=== PATIENT | female | born 1985 | race Two or more races ===

== ENCOUNTER → 2018-04-29 09:27 | Outpatient (CLI) | payer BC, SELFPAY ==
[2018-04-29 12:56] LABS: Absolute Lymphocyte Count 1.24 X10^3/ul (0.83-4.51); Absolute Neutrophil Count 5.7 X10^3/uL (2.0-7.7); Basophil# 0.02 X10^3/uL; Basophil% 0.3 % (0-1); Eosinophil# 0.12 X10^3/uL; Eosinophils% 1.6 % (0-5); Hematocrit 43.6 % (37-47); Hemoglobin 14.9 g/dl (12.0-15.0); Lymphocyte # 1.24 X10^3/ul (4.0); Mean Corp Hgb Conc 34.2 g/gl (32-36); Mean Corpuscular Hgb 28.8 pg (27.0-32.0); Mean Corpuscular Volume 84.2 fL (81-99); Mean Platelet Vol. 10.2 fl (6.2-12.0); Monocyte# 0.63 X10^3/uL; Monocyte% 8.1 % (0-10); Neutrophil # 5.73 X10^3/uL (2.7-7.7); Platelet Count 271 K/mm3 (150-450); RBC Distribution Width CV 13.1 % (11.6-14.6); RBC Distribution Width SD 40.4 fl (35.1-43.9); Red Blood Count 5.18 M/mm3 (4.2-5.4); White Blood Count 7.7 K/mm3 (4.4-11.0)
[2018-04-29 13:03] LABS: POSITIVE COUNT NO; POSITIVE DIFFERENTIAL NO; POSITIVE MORPHOLOGY NO
[2018-04-29 13:57] LABS: HIV - WCH Non-Reactive (Nonreactive); Rubella IgG 137.1 IU/mL
[2018-04-30 16:16] LABS: HEPATITIS B SURFACE AG Negative (Negative); Hep C Antibodies 0.1 s/co ratio (0.0-0.9)
[2018-05-01 01:34] LABS: Rapid Plasmin Reagin (RPR) NONREACTIVE (NONREACTIVE)
== END ==
PROVIDERS: Family Provider Student in an Organized Health Care Education/Training Program; PCP Student in an Organized Health Care Education/Training Program; Visit Provider Obstetrics & Gynecology
DX: Z34.90 Encounter for supervision of normal pregnancy, unspecified, unspecified trimester (principal)
CPT/HCPCS: 36415; 85025; 86592; 86703; 86762; 86803; 86850; 86900; 87340

== ENCOUNTER → 2018-04-29 18:43 | Outpatient (CLI) | payer BC, SELFPAY ==
[2018-04-30 00:40] LABS: Chlamydia Trachomatis by PCR Negative (Negative); Neisserai gonorrhoeae by PCR Negative (Negative); Probe Check PASS; Sample Adequacy Control PASS; Specimen Processing Control PASS
[2018-05-04 15:23] LABS: HPV APTIMA, High Risk Negative (Negative)
== END ==
PROVIDERS: Visit Provider Obstetrics & Gynecology
DX: Z12.4 Encounter for screening for malignant neoplasm of cervix (principal); Z34.90 Encounter for supervision of normal pregnancy, unspecified, unspecified trimester
CPT/HCPCS: 87086; 87491; 87591; 88175; G0145

== ENCOUNTER → 2018-09-04 09:47 | Outpatient (CLI) | payer BC, SELFPAY ==
[2018-09-04 09:04] VITALS: BMI 22.3
[2018-09-04 10:29] LABS: Absolute Lymphocyte Count 1.46 X10^3/ul (0.83-4.51); Absolute Neutrophil Count 10.2 X10^3/uL (2.0-7.7); Basophil# 0.03 X10^3/uL; Basophil% 0.2 % (0-1); Eosinophil# 0.23 X10^3/uL; Eosinophils% 1.8 % (0-5); Hematocrit 39.9 % (37-47); Hemoglobin 13.5 g/dl (12.0-15.0); Lymphocyte # 1.46 X10^3/ul (4.0); Lymphocyte % 11.2 % (19-41); Mean Corp Hgb Conc 33.8 g/gl (32-36); Mean Corpuscular Hgb 29.9 pg (27.0-32.0); Mean Corpuscular Volume 88.5 fL (81-99); Mean Platelet Vol. 9.9 fl (6.2-12.0); Monocyte# 1.04 X10^3/uL; Neutrophil % 77.9 % (47-70); Platelet Count 236 K/mm3 (150-450); RBC Distribution Width CV 13.9 % (11.6-14.6); RBC Distribution Width SD 44.3 fl (35.1-43.9); Red Blood Count 4.51 M/mm3 (4.2-5.4); White Blood Count 13.1 K/mm3 (4.4-11.0)
[2018-09-04 10:35] LABS: POSITIVE COUNT NO; POSITIVE DIFFERENTIAL NO; POSITIVE MORPHOLOGY NO
[2018-09-04 10:37] LABS: Glucose Challenge Gest 1H 50g 70 mg/dL (70-140)
--- OUTSIDE RECORDS SUMMARY | 2018-10-20 23:57 | XMS RPT_ITS ---
:1985 Author Organization OHIP Support Name Relationship Address Phone [facility] Unavailable [address] + [place] [address] MARTHA RYAN Unavailable [address] + [place] [id number] [place] [address] + [place] [address] MARTHA RYAN Unavailable [address] + [place] [address] [facility] Unavailable [address] + [place] [address] MARTHA RYAN Unavailable [address] + [place] [id number] [place] [address] + [place] [address] RYAN THOMAS Unavailable [address] + [place] [address] [facility] Unavailable [address] + [place] [address] RYAN THOMAS Unavailable [address] + [place] [address] MARTHAPHILL DUARTEA Unavailable [address] + [place], [place] [id number] [place] [address] + [place] [address] MARTHA RYAN Unavailable [address] + [place] [id number] [place] [address] + [place] [address] RYAN THOMAS Unavailable [address] + [place] [id number] [place] [address] + [place] [address] MARTHA, RYAN Unavailable [address] + [place] [address] [facility] Unavailable [address] + [place] [address] MARTHA, RYAN Unavailable [address] + [place] [address] [facility] Unavailable Unavailable + [place] [address] MARTHA, RYAN Unavailable [address] + [place] [address] Care Team Providers Name Role Phone DAVID LUO Attending Unavailable DAVID LUO Referring Unavailable ANGELO MIRANDA Attending Unavailable SIMONA WILKERSON Referring Unavailable NO PRIMARY CAREMD Primary Care Unavailable Nicholas Braun Attending Unavailable Beltre, Orlin Referring Unavailable Evan, Molly Attending Unavailable ClareNicholas Referring Unavailable Beltre, Orlin Primary Care Unavailable MarcanthonySimona Attending Unavailable Beltre, Orlin Referring Unavailable Beltre, Orlin Primary Care Unavailable Marcanthony, Simona Attending Unavailable Beltre, Orlin Primary Care Unavailable Marcanthony, Simona Attending Unavailable Beltre, Orlin Referring Unavailable Marcanthony, Simona Attending Unavailable Beltre, Orlin Referring Unavailable Marcanthony, Simona Attending Unavailable Beltre, Orlin Primary Care Unavailable Marcanthony, Simona Referring Unavailable Marcanthony, Simona Attending Unavailable Beltre, Orlin Referring Unavailable Marcanthony, Simona Attending Unavailable Beltre, Orlin Referring Unavailable Clare, Nicholas Attending Unavailable Beltre, Orlin Referring Unavailable PROBLEMS PROBLEMS DATE TYPE CONDITION / CODE ATTENDING STATUS SOURCE 10/07/2018 Unknown Z3A.32 - 32 weeks Marcanthcatherine, Active [place] gestation of [facility] Z3A.32(ICD-10) Repository 10/07/2018 Unknown Z34.80 - Encounter René, Active [place] for supervision of [facility] other normal Hospital , Repository unspecified trimester / Z34.80(ICD-10) 09/04/2018 Unknown Z34.90 - Encounter Nihcolas Braun Active [place] for supervision of [facility] normal , Hospital unspecified, Repository unspecified trimester / Z34.90(ICD-10) 09/04/2018 Unknown Z23 - Encounter Nicholas Braun Active [place] for immunization / Community Z23(ICD-10) Hospital Repository 07/06/2018 Unknown Z3A.19 - 19 weeks Natalyacatherine, Active [place] gestation of [facility] Z3A.19(ICD-10) Repository 04/30/2018 Unknown Z12.4 - Encounter René, Active [place] for screening for [facility] malignant neoplasm Hospital of cervix / Repository Z12.4(ICD-10) PROCEDURES PROCEDURES No Procedure Records FoundRESULTS RESULTS RABBET OPERATOR OFFICE VISIT Observed: 10/07/2018 Status: F Source: [place] REPORT 10:48 AM [facility] [address] [place] [address]. [address] [place] [address] OFFICE VISIT Date of Service: 10/07/18 MR#: [id number] Acct: [id number] Name: ALEX THOMAS Rep #: [id number] : 1985 Provider: Simona Wilkerson MD Age/Sex: 33/F [facility] [facility] Status: Signed Intake Vital Signs10/07/18 Body Mass Index (BMI) 22.3 Intake Visit Reasons: 31 week ob Chief Complaint: est ob Vibration Technician Required: No Is patient in pain?: No Allergies No Known Allergies Allergy (Verified 10/07/18 10:28) Medications Vit No.130/Iron/Folic [ Tablet] 1 tab PO BID 03/28/16 [History Confirmed 10/07/18] Last Menstral Period: 02/21/18 Zika: Zika virus screening: Negative : No PFSH PFSH Medical History Abnormal Pap smear of cervix (Acute) Surgical History Status post colposcopy (Resolved) Family History Mother Breast cancer Grandmother Breast cancer Social History Smoking Status: Never smoker alcohol intake: never substance use type: does not use caffeine: No what type of physical activity do you participate in: none seatbelt use: always do you feel safe at home: Yes 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 DateName GA/Weeks Outcome Route Bth WeighInfant GeLabor LgtAnesthesiDel LocatProvider FOB t n h a n Delivery Date: 03/28/16 On 04/29/18 @ 08:36 Anat Campbell No issues during . Baby and patient had to receive antibiotic afterwards. Baby had fever. Patient had issues with uterus to contract HPI 31 week ob: Details: ALEX THOMAS is a 33 year old who presents for routine OB visit. OB Visit IDRIS Calculator Estimated Delivery Date 11/29/18 Based on Ultrasound Date 04/29/18 Current WG 32w 3d Number 1 Expected Delivery Route/Plan Specific Issue/Plans flu vaccine: given tdap vaccine: given rhogam: NA LARC form signed: declines labor support person: Ryan pain management: epidural cut cord/dad catch: yes : yes PP control planned: condoms special requests: [] Initial Weight: 137 lb Date Weight BP Urine PrFHR FuHt Pres MoCTX DilationFetal StVisit NoProviderComments E ot v te [place] G Effac lucose ed Visit Notes Visit Date: 10/07/18 no vb lof good fm n oregular ctx Simona Wilkerson MD on 10/07/18 Visit Date: 09/21/18 no vb lof good fm no regular ctx Simona Wilkerson MD on 09/21/18 Visit Date: 09/04/18 Doing well. No VB, LOF. ALEXIS Baeza on 09/04/18 Visit Date: 08/07/18 No VB, LOF. Had some tightening 1 week ago and resolved. ALEXIS Baeza on 08/07/18 Visit Date: 07/06/18 had small bleeding a few weeks ago and resolved spontaneously, no cramping Simona Wilkerosn MD on 07/06/18 Visit Date: 06/01/18 no vb cramping declines genetic testing, considering NTD screening Simona Wilkerson MD on 06/01/18 Visit Date: 08/08/18 No visit notes to display ACOG First Trimester First Trimester: Desire for , Alcohol, Tobacco Cessation, Illicit/Recreational Drug/Substance Use, Intimate Partner Violence, Barriers to care, Unstable Housing, Communication Barriers, Environmental/Work Hazards, Anticipated Course of Care, Toxoplasmosis Precations, Use of Any medications, Sexual activity, Exercise, Dental Care, Sauna/Hot tub use, Seat Belt use, Childbirth classes/Hospital facilities, , Travel, Indications for US and Screening for Aneuploidy Diagnostics Diagnostics Labs Blood Type A POSITIVE 04/29/18 Antibody Screen NEGATIVE 04/29/18 Hct 39.9 % (37-47) 09/04/18 Hgb 13.5 g/dl (12.0-15.0) 09/04/18 Pap Smear Negative 03/27/15 Rubella IgG Antibody 137.1 IU/mL 04/29/18 RPR NONREACTIVE (NONREACTIVE) 04/29/18 Hep Bs Antigen Negative (Negative) 04/29/18 Chlam trachomat DNA PCR Negative (Negative) 04/29/18 N.gonorrhoeae DNA (PCR) Negative (Negative) 04/29/18 Glucose 1 Hr 50 gm 70 mg/dL (70-140) 09/04/18 Details: HIV: Urine Culture: Sequential Screen: NIPT Screen: Results [id number] Office Urine Glucose Negative Last Edit by Cira Frausto on 10/07/18 10:33 Office Urine Protein Negative Last Edit by Cira Frausto on 10/07/18 10:33 Assessment AND Plan Problems 1. 32 weeks gestation of Z3A.32 declines genetic and carrier screening, considering AFP. Anatomy us normal 2. Normal in multigravida Z34.80 PRR IDRIS 11/29/18 PC Bree Ryan Plan movement and labor precautions reviewed. ACOG trimester education reviewed and updated. see problem list details for updated plan management information and see below for orders placed at this visit. [place] appropriate handout given. Orders Orders: Coding Level of Care Code OB Routine Diagnoses 32 weeks gestation of Z3A.32 Weeks of gestation: 32 weeks Normal in multigravida Z34.80 10/07/18 1048 <Electronically signed by Simona Wilkerson MD> Date [facility] Signature: Date (if applicable) CC: RABBET OPERATOR OFFICE VISIT Observed: 09/21/2018 Status: F Source: [place] REPORT 1:24 PM [facility] [address] [place] [address] OFFICE VISIT Date of Service: 09/21/18 MR#: [id number] Acct: [id number] Name: ALEX THOMAS Rep #: [id number] : 1985 Provider: Simona Wilkerson MD Age/Sex: 33/F [place] [facility] Status: Signed Intake Vital Signs09/21/18 Body Mass Index (BMI) 22.3 09/21/18 Height 5 ft 9 in 09/21/18 Weight: 159 lb 6 oz 09/21/18 Body Mass Index (BMI) 23.5 09/21/18 Blood Pressure 110/64 Intake Visit Reasons: ob Vibration Technician Required: No Is patient in pain?: No Allergies No Known Allergies Allergy (Verified 09/21/18 12:14) Medications Vit No.130/Iron/Folic [ Tablet] 1 tab PO BID 03/28/16 [History Confirmed 09/21/18] Last Menstral Period: 02/21/18 Zika: Zika virus screening: Negative : No PFSH PFSH Medical History Abnormal Pap smear of cervix (Acute) Surgical History Status post colposcopy (Resolved) Family History Mother Breast cancer Grandmother Breast cancer Social History Smoking Status: Never smoker alcohol intake: never substance use type: does not use caffeine: No what type of physical activity do you participate in: none seatbelt use: always do you feel safe at home: Yes 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 DateName GA/Weeks Outcome Route Bth WeighInfant GeLabor LgtAnesthesiDel LocatProvider FOB t n h a n Delivery Date: 03/28/16 On 04/29/18 @ 08:36 Anat Campbell No issues during . Baby and patient had to receive antibiotic afterwards. Baby had fever. Patient had issues with uterus to contract HPI ob: Details: ALEX THOMAS is a 33 year old who presents for routine OB visit. OB Visit IDRIS Calculator Estimated Delivery Date 11/29/18 Based on Ultrasound Date 04/29/18 Current WG 30w 1d Number 1 Expected Delivery Route/Plan Specific Issue/Plans flu vaccine: given tdap vaccine: given rhogam: NA LARC form signed: declines labor support person: Ryan pain management: epidural cut cord/dad catch: yes : yes PP control planned: condoms special requests: [] Initial Weight: 137 lb Date Weight BP Urine PrFHR FuHt Pres MoCTX DilationFetal StVisit NoProviderComments E ot v te [place] G Effac lucose ed Visit Notes Visit Date: 09/21/18 no vb lof good fm no regular ctx Simona Wilkerson MD on 09/21/18 Visit Date: 09/04/18 Doing well. No VB, LOF. ALEXIS Baeza on 09/04/18 Visit Date: 08/07/18 No VB, LOF. Had some tightening 1 week ago and resolved. ALEXIS Baeza on 08/07/18 Visit Date: 07/06/18 had small bleeding a few weeks ago and resolved spontaneously, no cramping Simona Wilkerson MD on 07/06/18 Visit Date: 06/01/18 no vb cramping declines genetic testing, considering NTD screening Simona Wilkerson MD on 06/01/18 Visit Date: 04/29/18 No visit notes to display ACOG First Trimester First Trimester: Desire for , Alcohol, Tobacco Cessation, Illicit/Recreational Drug/Substance Use, Intimate Partner Violence, Barriers to care, Unstable Housing, Communication Barriers, Environmental/Work Hazards, Anticipated Course of Care, Toxoplasmosis Precations, Use of Any medications, Sexual activity, Exercise, Dental Care, Sauna/Hot tub use, Seat Belt use, Childbirth classes/Hospital facilities, , Travel, Indications for US and Screening for Aneuploidy Diagnostics Diagnostics Labs Blood Type A POSITIVE 04/29/18 Antibody Screen NEGATIVE 04/29/18 Hct 39.9 % (37-47) 09/04/18 Hgb 13.5 g/dl (12.0-15.0) 09/04/18 Pap Smear Negative 03/27/15 Rubella IgG Antibody 137.1 IU/mL 04/29/18 RPR NONREACTIVE (NONREACTIVE) 04/29/18 Hep Bs Antigen Negative (Negative) 04/29/18 Chlam trachomat DNA PCR Negative (Negative) 04/29/18 N.gonorrhoeae DNA (PCR) Negative (Negative) 04/29/18 Glucose 1 Hr 50 gm 70 mg/dL (70-140) 09/04/18 Details: HIV: Urine Culture: Sequential Screen: NIPT Screen: Results [id number] Office Urine Glucose Negative Last Edit by Grisel Baker on 09/21/18 12:13 Office Urine Protein Negative Last Edit by Grisel Baker on 09/21/18 12:13 Assessment AND Plan Problems 1. 30 weeks gestation of Z3A.30 declines genetic and carrier screening, considering AFP. Anatomy us normal 2. Normal in multigravida Z34.80 PRR IDRIS 11/29/18 PC Bree Ryan Plan movement and labor precautions reviewed. ACOG trimester education reviewed and updated. see problem list details for updated plan management information and see below for orders placed at this visit. [place] appropriate handout given. Orders Orders: Coding Level of Care Code OB Routine Diagnoses 30 weeks gestation of Z3A.30 Weeks of gestation: 30 weeks Normal in multigravida Z34.80 09/21/18 1324 <Electronically signed by Simona Wilkerson MD> Date Simona Wilkerson MD Cosigner Signature: Date (if applicable) CC: CBC W/DIFF, AUTOMATED Collected: 09/04/2018 Status: F Source: [place] 10:03 AM [facility] [place] TYPE CODE TESTS RESULT OUT OF RANGE REFERENCE UNITS LAB L100.1000 4.4-11.0 K/mm3 High WBC 13.1 LAB L100.1200 4.2-5.4 M/mm3 Normal RBC 4.51 LAB L100.1300 12.0-15.0 g/dl Normal HGB 13.5 LAB L100.1400 37-47 % Normal HCT 39.9 LAB L100.1500 81-99 fL Normal MCV 88.5 LAB L100.1600 27.0-32.0 pg Normal MCH 29.9 LAB L100.1700 32-36 g/gl Normal MCHC 33.8 LAB L100.1810 11.6-14.6 % Normal RDW CV 13.9 LAB L100.1820 35.1-43.9 fl High RDW SD 44.3 LAB L100.1900 150-450 K/mm3 Normal PLT 236 LAB L100.2000 6.2-12.0 fl Normal MPV 9.9 LAB L100.2100 47-70 % High NEUT% 77.9 LAB L100.2200 19-41 % Low LY% 11.2 LAB L100.2300 0-10 % Normal MONO% 8.0 LAB L100.2400 0-5 % Normal EO% 1.8 LAB L100.2500 0-1 % Normal BASO% 0.2 LAB L100.2550 0.0-0.9 % Normal IM GRAN % 0.900 Result Comment: IG% - Immature Granulocytes (promyelocytes, myelocytes and metamyelocytes) > 1% indicates that a LEFT SHIFT is Present. LAB L100.2620 2.0-7.7 X10 3/uL High Absolute Neut 10.2 LAB L100.2720 0.83-4.51 X10 3/ul Normal Absolute Lymph 1.46 Performed By: #### L100.0100 #### [facility] [address] [place], [place], [id number] GLUCOSE CHALLENGE GEST Collected: 09/04/2018 Status: F Source: [place] 1H 50G 10:03 AM [facility] Order Comment: PER NICHOLAS BRAUN, DRAW PATIENT. PATIENT WAS TO BE DRAWN AT 0945 FOR GLUCOSE. TYPE CODE TESTS RESULT OUT OF RANGE REFERENCE UNITS LAB L501.0250 70-140 mg/dL Normal GLU GEST 70 50g 1H Performed By: #### L501.0250 #### [facility] [address] [place], [address] RABBET OPERATOR OFFICE VISIT Observed: 09/04/2018 Status: F Source: [place] REPORT 9:14 AM [facility] [address] [place] [address] OFFICE VISIT Date of Service: 09/04/18 MR#: [id number] Acct: [id number] Name: ALEX THOMAS Rep #: [id number] : 1985 Provider: ÁLVARO Braun Age/Sex: 33/F [place] [facility] Status: Signed Intake Vital Signs09/04/18 Body Mass Index (BMI) 22.3 09/04/18 Height 5 ft 5.8 in 09/04/18 Weight: 155 lb 09/04/18 Body Mass Index (BMI) 25.1 09/04/18 Blood Pressure 112/80 Intake Visit Reasons: 27 wk Chief Complaint: est ob Vibration Technician Required: No Is patient in pain?: No Allergies No Known Allergies Allergy (Verified 09/04/18 08:49) Medications Vit No.130/Iron/Folic [ Tablet] 1 tab PO BID 03/28/16 [History Confirmed 08/07/18] Last Menstral Period: 02/21/18 Zika: Zika virus screening: Negative : No PFSH PFSH Medical History Abnormal Pap smear of cervix (Acute) Surgical History Status post colposcopy (Resolved) Family History Mother Breast cancer Grandmother Breast cancer Social History Smoking Status: Never smoker alcohol intake: never substance use type: does not use caffeine: No what type of physical activity do you participate in: none seatbelt use: always do you feel safe at home: Yes 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 DateName GA/Weeks Outcome Route Bth WeighInfant GeLabor LgtAnesthesiDel LocatProvider FOB t n h a n Delivery Date: 03/28/16 On 04/29/18 @ 08:36 Anat Campbell No issues during . Baby and patient had to receive antibiotic afterwards. Baby had fever. Patient had issues with uterus to contract HPI 27 wk : Details: LAEX THOMAS is a 33 year old who presents for routine OB visit. OB Visit IDRIS Calculator Estimated Delivery Date 11/29/18 Based on Ultrasound Date 04/29/18 Current WG 27w 5d Number 1 Expected Delivery Route/Plan Specific Issue/Plans flu vaccine: given tdap vaccine: given rhogam: NA LARC form signed: declines labor support person: Ryan pain management: epidural cut cord/dad catch: yes : yes PP control planned: condoms special requests: [] Initial Weight: 137 lb Date Weight BP Urine PrFHR FuHt Pres MoCTX DilationFetal StVisit NoProviderComments E ot v te [place] G Effac lucose ed Visit Notes Visit Date: 09/04/18 Doing well. No VB, LOF. ALEXIS Baeza on 09/04/18 Visit Date: 08/07/18 No VB, LOF. Had some tightening 1 week ago and resolved. ALEXIS Baeza on 08/07/18 Visit Date: 07/06/18 had small bleeding a few weeks ago and resolved spontaneously, no cramping Simona Wilkerson MD on 07/06/18 Visit Date: 06/01/18 no vb cramping declines genetic testing, considering NTD screening Simona Wilkerson MD on 06/01/18 Visit Date: 04/29/18 No visit notes to display ACOG First Trimester First Trimester: Desire for , Alcohol, Tobacco Cessation, Illicit/Recreational Drug/Substance Use, Intimate Partner Violence, Barriers to care, Unstable Housing, Communication Barriers, Environmental/Work Hazards, Anticipated Course of Care, Toxoplasmosis Precations, Use of Any medications, Sexual activity, Exercise, Dental Care, Sauna/Hot tub use, Seat Belt use, Childbirth classes/Hospital facilities, , Travel, Indications for US and Screening for Aneuploidy Diagnostics Diagnostics Labs Blood Type A POSITIVE 04/29/18 Antibody Screen NEGATIVE 04/29/18 Hct 43.6 % (37-47) 04/29/18 Hgb 14.9 g/dl (12.0-15.0) 04/29/18 Pap Smear Negative 03/27/15 Rubella IgG Antibody 137.1 IU/mL 04/29/18 RPR NONREACTIVE (NONREACTIVE) 04/29/18 Hep Bs Antigen Negative (Negative) 04/29/18 Chlam trachomat DNA PCR Negative (Negative) 04/29/18 N.gonorrhoeae DNA (PCR) Negative (Negative) 04/29/18 Details: HIV: Urine Culture: Sequential Screen: NIPT Screen: Results [id number] Office Urine Glucose Negative Last Edit by Cira Frausto on 09/04/18 08:51 Office Urine Protein Negative Last Edit by Cira Frausto on 09/04/18 08:51 Immunizations Boostrix Tdap Performing Provider: ALEXIS Baeza Administered by: Cira Frausto on 09/04/18 08:52 Dose Route Admin Location Lot Number Expiration Date [facility] Advertising Executive 0.5 mL IM Right Arm (SQ) [id number] 07/11/25 66570-627-42 [employer] VIS Given Date VIS Publication Date 09/04/18 11/15/14 Eligibility Eligibility Date Assessment AND Plan Problems 1. Normal in multigravida Z34.80 PRR IDRIS 11/29/18 PC Bree Ryan 2. 27 weeks gestation of Z3A.27 declines genetic and carrier screening, considering AFP. Anatomy us normal Plan Orders placed: 28 wk labs, tdap Reviewed of labor precautions, movement/kick counts ACOG trimester education reviewed and updated See problem list details for updated plan of care Gestational age appropriate handout given RTO: 3 weeks Orders Orders: Medications Discontinued: Boostrix Tdap (diphth,pertus(acell),tetanus) Discontinue0.5 mL IM ONCE 1 mL 0RF NS Z23 d Reason: Office Medication has been Documented as given Coding Level of Care Code OB Routine Diagnoses Normal in multigravida Z34.80 27 weeks gestation of Z3A.27 Weeks of gestation: 27 weeks 09/04/18 0914 <Electronically signed by Nicholas ESPINOZA> Date Nicholas ESPINOZA Cosigner Signature: Date (if applicable) CC: RABBET OPERATOR OFFICE VISIT Observed: 08/07/2018 Status: F Source: [place] REPORT 8:34 AM [facility] [address] [place] [address] OFFICE VISIT Date of Service: 08/07/18 MR#: [id number] Acct: [id number] Name: ALEX THOMAS Rep #: [id number] : 1985 Provider: ÁLVARO Braun Age/Sex: 33/F [place] [facility] Status: Signed Intake Vital Signs08/07/18 Height 5 ft 8.5 in 08/07/18 Weight: 149 lb 08/07/18 Body Mass Index (BMI) 22.3 08/07/18 Blood Pressure 100/62 Intake Visit Reasons: 22 weeksh Chief Complaint: est ob Vibration Technician Required: No Is patient in pain?: No Allergies No Known Allergies Allergy (Verified 08/07/18 08:08) Medications Vit No.130/Iron/FA [ Tablet] 1 tab PO BID 03/28/16 [History Confirmed 08/07/18] Last Menstral Period: 02/21/18 Zika: Zika virus screening: Negative : No PFSH PFSH Medical History Abnormal Pap smear of cervix (Acute) Surgical History Status post colposcopy (Resolved) Family History Mother Breast cancer Grandmother Breast cancer Social History Smoking Status: Never smoker alcohol intake: never substance use type: does not use caffeine: No what type of physical activity do you participate in: none seatbelt use: always do you feel safe at home: Yes 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 DateName GA/Weeks Outcome Route Bth WeighInfant GeLabor LgtAnesthesiDel LocatProvider FOB t n h a n Delivery Date: 03/28/16 On 04/29/18 @ 08:36 Anat Campbell No issues during . Baby and patient had to receive antibiotic afterwards. Baby had fever. Patient had issues with uterus to contract HPI 22 weeksh: Details: ALEX THOMAS is a 33 year old who presents for routine OB visit. OB Visit IDRIS Calculator Estimated Delivery Date 11/29/18 Based on Ultrasound Date 04/29/18 Current WG 23w 5d Number 1 Expected Delivery Route/Plan Specific Issue/Plans flu vaccine: given tdap vaccine: [] rhogam: [] LARC form signed: [] labor support person: Ryan pain management: epidural cut cord/dad catch: yes : yes PP control planned: [] special requests: [] Initial Weight: 137 lb Date Weight BP Urine PFHR FuHt Pres MCTX DilatioFetal SVisit NProvideComment rot ov n t ote r s EGA Ef Gluco faced se 04/29/1137 lb 133/80 8 (+0 oz) 9w 3d Visit Notes Visit Date: 08/07/18 No VB, LOF. Had some tightening 1 week ago and resolved. ALEXIS Baeza on 08/07/18 Visit Date: 07/06/18 had small bleeding a few weeks ago and resolved spontaneously, no cramping Simona Wilkerson MD on 07/06/18 Visit Date: 06/01/18 no vb cramping declines genetic testing, considering NTD screening Simona Wilkerson MD on 06/01/18 Visit Date: 04/29/18 No visit notes to display ACOG First Trimester First Trimester: Desire for , Alcohol, Tobacco Cessation, Illicit/Recreational Drug/Substance Use, Intimate Partner Violence, Barriers to care, Unstable Housing, Communication Barriers, Environmental/Work Hazards, Anticipated Course of Care, Toxoplasmosis Precations, Use of Any medications, Sexual activity, Exercise, Dental Care, Sauna/Hot tub use, Seat Belt use, Childbirth classes/Hospital facilities, , Travel, Indications for US and Screening for Aneuploidy Diagnostics Diagnostics Labs Blood Type A POSITIVE 04/29/18 Antibody Screen NEGATIVE 04/29/18 Hct 43.6 % (37-47) 04/29/18 Hgb 14.9 g/dl (12.0-15.0) 04/29/18 Pap Smear Negative 03/27/15 Rubella IgG Antibody 137.1 IU/mL 04/29/18 RPR NONREACTIVE (NONREACTIVE) 04/29/18 Hep Bs Antigen Negative (Negative) 04/29/18 Chlam trachomat DNA PCR Negative (Negative) 04/29/18 N.gonorrhoeae DNA (PCR) Negative (Negative) 04/29/18 Details: HIV: Urine Culture: Sequential Screen: NIPT Screen: Results [id number] Office Urine Glucose Negative Last Edit by Cira Frausto on 08/07/18 08:13 Office Urine Protein Negative Last Edit by Cira Frausto on 08/07/18 08:13 Assessment AND Plan Problems 1. Normal in multigravida Z34.80 PRR IDRIS 11/29/18 PC Bree Ryan 2. 23 weeks gestation of Z3A.23 declines genetic and carrier screening, considering AFP. Anatomy us normal Plan Orders placed: none Reviewed of labor precautions, movement/kick counts ACOG trimester education reviewed and updated See problem list details for updated plan of care Gestational age appropriate handout given RTO: 4 weeks Orders Orders: Coding Level of Care Code OB Routine Diagnoses Normal in multigravida Z34.80 23 weeks gestation of Z3A.23 Weeks of gestation: 23 weeks 08/07/18 0834 <Electronically signed by Nicholas ESPINOZA> Date Nicholas Evan VEST FINISHER-C Cosigner Signature: Date (if applicable) CC: RABBET OPERATOR OFFICE VISIT Observed: 07/06/2018 Status: F Source: ЕЛЕНА REPORT 4:49 PM [facility] [address] [place] [address] OFFICE VISIT Date of Service: 07/06/18 MR#: [id number] Acct: [id number] Name: ALEX THOMAS Rep #: [id number] : 1985 Provider: Simona Wilkerson MD Age/Sex: 33/F [place] [facility]: Signed with Addenda ADDENDUM by Manju Jiang on 07/06/18 at 1649 OFFICE PROCEDURES Office Procedure Documentation entered by Manju Jiang 07/06/18 16:49: Office Meds Flucelvax Quad [id number] (PF) Performing Provider: Simona Wilkerson MD Administered by: Manju Jiang on 07/06/18 16:43 Dose Route Admin Location Lot Number Expiration Date NDC Advertising Executive 0.5 mL IM right deltoid [id number] 03/21/19 [id number] SEQIRUS 07/06/18 1649 <Electronically signed by Manju Jiang > Date Manju Jiang cc: * Signed Intake Vital Signs07/06/18 Height 5 ft 8 in 07/06/18 Weight: 140 lb 2 oz 07/06/18 Body Mass Index (BMI) 21.3 07/06/18 Blood Pressure 102/54 L Intake Visit Reasons: 18 WEEK OB Chief Complaint: est ob Vibration Technician Required: No Is patient in pain?: No Allergies No Known Allergies Allergy (Verified 07/06/18 08:12) Medications Vit No.130/Iron/FA [ Tablet] 1 tab PO BID 03/28/16 [History Confirmed 07/06/18] Last Menstral Period: 02/21/18 Zika: Zika virus screening: Negative : No PFSH PFSH Medical History Abnormal Pap smear of cervix (Acute) Surgical History Status post colposcopy (Resolved) Family History Mother Breast cancer Grandmother Breast cancer Social History Smoking Status: Never smoker alcohol intake: never substance use type: does not use caffeine: No what type of physical activity do you participate in: none seatbelt use: always do you feel safe at home: Yes 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 DateName GA/Weeks Outcome Route Bth WeighInfant GeLabor LgtAnesthesiDel LocatProvider FOB t n h a n Delivery Date: 03/28/16 On 04/29/18 @ 08:36 ShannanAnat No issues during . Baby and patient had to receive antibiotic afterwards. Baby had fever. Patient had issues with uterus to contract HPI 18 WEEK OB: Details: ALEX THOMAS is a 33 year old who presents for routine OB visit. OB Visit IDRIS Calculator Estimated Delivery Date 11/29/18 Based on Ultrasound Date 04/29/18 Current WG 19w 1d Number 1 Expected Delivery Route/Plan Initial Weight: 137 lb Date Weight BP Urine PrFHR FuHt Pres MoCTX DilationFetal StVisit NoProviderComments E ot v te GA G Effac lucose ed Visit Notes Visit Date: 07/06/18 had small bleeding a few weeks ago and resolved spontaneously, no cramping Simona Wilkerson MD on 07/06/18 Visit Date: 06/01/18 no vb cramping declines genetic testing, considering NTD screening Simona Wilkerson MD on 06/01/18 Visit Date: 04/29/18 No visit notes to display ACOG First Trimester First Trimester: Desire for , Alcohol, Tobacco Cessation, Illicit/Recreational Drug/Substance Use, Intimate Partner Violence, Barriers to care, Unstable Housing, Communication Barriers, Environmental/Work Hazards, Anticipated Course of Care, Toxoplasmosis Precations, Use of Any medications, Sexual activity, Exercise, Dental Care, Sauna/Hot tub use, Seat Belt use, Childbirth classes/Hospital facilities, , Travel, Indications for US and Screening for Aneuploidy Diagnostics Diagnostics Labs Blood Type A POSITIVE 04/29/18 Antibody Screen NEGATIVE 04/29/18 Hct 43.6 % (37-47) 04/29/18 Hgb 14.9 g/dl (12.0-15.0) 04/29/18 Pap Smear Negative 03/27/15 Rubella IgG Antibody 137.1 IU/mL 04/29/18 RPR NONREACTIVE (NONREACTIVE) 04/29/18 Hep Bs Antigen Negative (Negative) 04/29/18 Chlam trachomat DNA PCR Negative (Negative) 04/29/18 N.gonorrhoeae DNA (PCR) Negative (Negative) 04/29/18 Details: HIV: Urine Culture: Sequential Screen: NIPT Screen: Results [id number] Office Urine Glucose Negative Last Edit by Cira Frausto on 07/06/18 08:15 Office Urine Protein Negative Last Edit by Cira Frausto on 07/06/18 08:15 Assessment AND Plan Problems 1. 19 weeks gestation of Z3A.19 declines genetic and carrier screening, considering AFP. anatomy us ordered 2. Normal in multigravida Z34.80 PRR IDRIS 11/29/18 PC Bree Ryan Plan ACOG trimester education reviewed and updated. see problem list details for updated plan management information and see below for orders placed at this visit. GA appropriate handout given. hodling off on afp for now until after ultrasound Orders Orders: Coding Level of Care Code OB Routine Diagnoses 19 weeks gestation of Z3A.19 Weeks of gestation: 19 weeks Normal in multigravida Z34.80 07/06/18 0831 <Electronically signed by Simona Wilkerson MD> Date Simona Wilkerson MD Cosign Signature: Date (if applicable) CC: RABBET OPERATOR OFFICE VISIT Observed: 06/01/2018 Status: F Source: ЕЛЕНА REPORT 8:39 AM [facility] [address] [place] [address] OFFICE VISIT Date of Service: 06/01/18 MR#: [id number] Acct: [id number] Name: ALEX THOMAS Rep #: [id number] : 1985 Provider: Simona Wilkerson MD Age/Sex: 33/F [place] [facility] Status: Signed Intake Vital Signs06/01/18 Height 5 ft 8 in 06/01/18 Weight: 138 lb 8 oz 06/01/18 Body Mass Index (BMI) 21.0 06/01/18 Blood Pressure 118/70 Intake Visit Reasons: 13 WEEK OB Chief Complaint: est ob Vibration Technician Required: No Is patient in pain?: No Allergies No Known Allergies Allergy (Verified 06/01/18 08:17) Medications Vit No.130/Iron/FA [ Tablet] 1 tab PO BID 03/28/16 [History Confirmed 04/29/18] Last Menstral Period: 02/21/18 Zika: Zika virus screening: Negative : No PFSH PFSH Medical History Abnormal Pap smear of cervix (Acute) Surgical History Status post colposcopy (Resolved) Family History Mother Breast cancer Grandmother Breast cancer Social History Smoking Status: Never smoker alcohol intake: never substance use type: does not use caffeine: No what type of physical activity do you participate in: none seatbelt use: always do you feel safe at home: Yes 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 DateName GA/Weeks Outcome Route Bth WeighInfant GeLabor LgtAnesthesiDel LocatProvider FOB t n h a n Delivery Date: 03/28/16 On 04/29/18 @ 08:36 Anat Campbell No issues during . Baby and patient had to receive antibiotic afterwards. Baby had fever. Patient had issues with uterus to contract HPI 13 WEEK OB: Details: ALEX THOMAS is a 33 year old who presents for routine OB visit. OB Visit IDRIS Calculator Estimated Delivery Date 11/29/18 Based on Ultrasound Date 04/29/18 Current WG 14w 1d Number 1 Expected Delivery Route/Plan Initial Weight: 137 lb Date Weight BP Urine PrFHR FuHt Pres MoCTX DilationFetal StVisit NoProviderComments E ot v te GA G Effac lucose ed Visit Notes Visit Date: 06/01/18 no vb cramping declines genetic testing, considering NTD screening Simona Wilkerson MD on 06/01/18 Visit Date: 04/29/18 No visit notes to display ACOG First Trimester First Trimester: Desire for , Alcohol, Tobacco Cessation, Illicit/Recreational Drug/Substance Use, Intimate Partner Violence, Barriers to care, Unstable Housing, Communication Barriers, Environmental/Work Hazards, Anticipated Course of Care, Toxoplasmosis Precations, Use of Any medications, Sexual activity, Exercise, Dental Care, Sauna/Hot tub use, Seat Belt use, Childbirth classes/Hospital facilities, , Travel, Indications for US and Screening for Aneuploidy Diagnostics Diagnostics Labs Blood Type A POSITIVE 04/29/18 Antibody Screen NEGATIVE 04/29/18 Hct 43.6 % (37-47) 04/29/18 Hgb 14.9 g/dl (12.0-15.0) 04/29/18 Pap Smear Negative 03/27/15 Rubella IgG Antibody 137.1 IU/mL 04/29/18 RPR NONREACTIVE (NONREACTIVE) 04/29/18 Hep Bs Antigen Negative (Negative) 04/29/18 Chlam trachomat DNA PCR Negative (Negative) 04/29/18 N.gonorrhoeae DNA (PCR) Negative (Negative) 04/29/18 Rhogam given: No 03/30/16 Details: HIV: Urine Culture: Sequential Screen: NIPT Screen: Results [id number] Office Urine Glucose Negative Last Edit by Cira Frausto on 06/01/18 08:18 Office Urine Protein Negative Last Edit by Cira Frausto on 06/01/18 08:18 Assessment AND Plan Problems 1. Normal in multigravida Z34.80 PRR IDRIS 11/29/18 PC Bree Ryan 2. Z34.90 declines genetic and carrier screening, considering AFP. anatomy us ordered Plan ACOG trimester education reviewed and updated. see problem list details for updated plan management information and see below for orders placed at this visit. GA appropriate handout given. Orders Orders: Coding Level of Care Code OB Routine Diagnoses Normal in multigravida Z34.80 Z34.90 06/01/18 0839 <Electronically signed by Simona Wilkerson MD> Date Simona Wilkerson MD Cosigner Signature: Date (if applicable) CC: CT/NG [facility] BY PCR Collected: 04/29/2018 Status: F Source: [place]А 6:44 PM [facility] CODE TESTS RESULT OUT OF RANGE REFERENCE UNITS LAB L8200.2100 Negative Normal Chlam Negative Trac PCR LAB L8200.2200 Negative Normal NG by Negative PCR Performed By: #### L8200.2000 #### [facility] [address] [place], [place], [address] Observed: 04/29/2018 Status: F Source: ЕЛЕНА CULTURE, URINE 6:44 PM [facility] [place] CYTOLOGY INFORMATION: - CLINICAL INFORMATION: - DATE LMP/MENOPAUSE: LMP unknown - COLLECTION VIAL: Thin Prep Vial - PICKERS MATERIAL HANDLERS SOURCE: CERVICAL - COLLECTION TECHNIQUE: CX BROOM ONLY Urine Culture Culture exhibits no growth. Performed By: #### M100.0650 #### [facility] [address] [place], [address] PAP IG HPV APTIMA Collected: 04/29/2018 Status: F Source: ЕЛЕНА 16/18,45 6:44 PM [facility] [place] Order Comment: Specimen Comment: No. of containers..01 ThinPrep Vial TYPE CODE TESTS RESULT OUT OF RANGE REFERENCE UNITS LAB L7400.0800 . Normal DIAGN Comment Result Comment: NEGATIVE FOR INTRAEPITHELIAL LESION AND MALIGNANCY. LAB L7400.0900 . Normal ADEQ Comment Result Comment: Satisfactory for evaluation. No endocervical component is identified. LAB L7400.1400 . Normal PERFORM Comment Result Comment: Mi Lua, Manager Electronic (ASCP) LAB L7400.2575 . Normal TEST METHOD Comment Result Comment: This liquid based ThinPrep(R) pap test was screened with the use of an image guided system. LAB L7400.2600 . Normal . COMM LAB L7400.2700 . Normal PAPSMR Comment Result Comment: The Pap smear is a screening test designed to aid in the detection of premalignant and malignant conditions of the uterine cervix. It is not a diagnostic procedure and should not be used as the sole means of detecting cervical cancer. Both false-positive and false-negative reports do occur. LAB L7400.2760 Negative Normal HPV APTIMA, Negative HR Result Comment: This test detects fourteen high-risk HPV types (16/18/31/33/35/39/45/ 51/52/56/58/59/66/68) without differentiation. Performed at: - [facility] [id number] Anatomy And Physiology Instructor: Sheryl Keen MD, Phone: [phone] Performed at: = - [facility] [id number] Anatomy And Physiology Instructor: Sheryl Keen MD, Phone: [phone] Performed By: #### L7400.0280 #### [facility] (refer to report for specific site) refer to report for address and phone number RABBET OPERATOR OFFICE VISIT Observed: 04/29/2018 Status: F Source: ЕЛЕНА REPORT 3:13 PM [facility] [address] [place] [address] OFFICE VISIT Date of Service: 04/29/18 MR#: [id number] Acct: [id number] Name: ALEX THOMAS Rep #: [id number] : 1985 Provider: Simona Wilkerson MD Age/Sex: 33/F [place] [facility] [place]: Signed Intake Vital Signs04/29/18 Height 5 ft 9 in 04/29/18 Weight: 137 lb 04/29/18 Body Mass Index (BMI) 20.2 04/29/18 Blood Pressure 133/80 Intake Visit Reasons: NOB - LMP BEGINNING OF FEBRUARY Vibration Technician Required: No Is patient in pain?: No Allergies No Known Allergies Allergy (Verified 04/29/18 08:31) Medications Vit No.130/Iron/FA [ Tablet] 1 tab PO BID 03/28/16 [History Confirmed 04/29/18] Last Menstral Period: 02/21/18 Zika: Zika virus screening: Negative : No PFSH PFSH Medical History Abnormal Pap smear of cervix (Acute) Surgical History Status post colposcopy (Resolved) Family History Mother Breast cancer Grandmother Breast cancer Social History Smoking Status: Never smoker alcohol intake: never substance use type: does not use caffeine: No what type of physical activity do you participate in: none seatbelt use: always do you feel safe at home: Yes 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 DateName GA/Weeks Outcome Route Bth WeighInfant GeLabor LgtAnesthesiDel LocatProvider FOB t n h a n Delivery Date: 03/28/16 On 04/29/18 @ 08:36 Anat Campbell No issues during . Baby and patient had to receive antibiotic afterwards. Baby had fever. Patient had issues with uterus to contract HPI NOB - LMP BEGINNING February: Details: ALEX THOMAS is a 33 year old who presents for New OB visit. OB Visit IDRIS Calculator Estimated Delivery Date 11/28/18 Based on LMP (uncertain) 02/21/18 Current WG 9w 4d Number 1 Expected Delivery Route/Plan Initial Weight: Not Recorded Date Weight BP Urine PrFHR FuHt Pres MoCTX DilationFetal StVisit NoProviderComments E ot v te GA G Effac lucose ed Menstrual History Last Menstral Period: 02/21/18 Reported LMP: definite Normal amount/duration: Yes On hormonal BC at conception: No Antepartum Record Genetic Screening: Congenital Heart Defect: Other, Neural Tube Defect: Other, Hemoglobinopathy Or Carrier: Other, Cystic Fibrosis: Other, Chromosome Abnormality: Other, Zana-Sachs: Other, Hemophilia: Other, Intellectual Disability/Autism: Other, Recurrent Loss/Stillbirth: Other, Other Structural Defect: Other, Other Genetic Disease: Other, Maternal Metabolic Disorder: Other Infection History: Live with someone with TB or Exposed to TB: No, Patient or Partner has history of Genital Herpes: No, Rash or Viral illness since last mentrual period: No, Prior GBS-Infected child: No, History of STD: No, HIV Infection: No, History of Hepatitis: No, Recent travel outside of [place]: No, Concern for Hep exposure: No, Varicella immune: Yes Medical History Medical History: Positive: History of abnormal pap, Negative: Diabetes, Hypertension, Heart disease, Auto-immune disorder, Kidney disease/UTI, Neurologic/epilepsy, Psychiatric, Depression/ depression, Hepatitis/liver disease, Varicosities/phlebitis, Thyroid dysfunction, Trauma/domestic violence, History of blood transfusions, D (Rh) Sensitized, Pulmonary (e.g.,TB,Asthma), Seasonal allergies, Drug/latex allergies/reactions, Breast, Forensic Engineer surgery, Operations/hospitalizations, Anesthetic complications, Uterine anomaly/thierry, Infertility, Anti-retroviral treatment, Relevant family history, Other ACOG First Trimester First Trimester: Desire for , Alcohol, Tobacco Cessation, Illicit/Recreational Drug/Substance Use, Intimate Partner Violence, Barriers to care, Unstable Housing, Communication Barriers, Environmental/Work Hazards, Anticipated Course of Care, Nurtrition and weight gain, Toxoplasmosis Precations, Use of Any medications, Sexual activity, Exercise, Dental Care, Sauna/Hot tub use, Seat Belt use, Childbirth classes/Hospital facilities, , Travel, Indications for US and Screening for Aneuploidy ROS Const Denies fever(s), Reports system reviewed and no additional complaints, except as docu, Reports fatigue Eyes Reports system reviewed and no additional complaints, except as docu ENT Reports system reviewed and no additional complaints, except as docu Card Denies chest pain, Denies shortness of breath Resp Reports system reviewed and no additional complaints, except as docu, Denies shortness of breath, Denies cough GI Reports nausea, Denies abdominal pain Reports system reviewed and no additional complaints, except as docu Musc Reports system reviewed and no additional complaints, except as docu Skin/Breast Reports system reviewed and no additional complaints, except as docu Neuro Yes system reviewed and no additional complaints, except as docu Psych Reports system reviewed and no additional complaints, except as docu Endo Reports fatigue, Reports system reviewed and no additional complaints, except as docu Exam Const General: healthy appearing, comfortable, no acute distress Orientation: alert [facility] Head: normal to inspection, atraumatic, normocephalic Ears: external ears normal, hearing grossly normal bilaterally Nose: nares normal, external nose normal Mouth: oral mucosae normal Teeth and gingiva: dentition normal Eyes General: appearance normal, both eyes and all related structures Neck Neck: no lymphadenopathy, supple, normal visual inspection Thyroid: thyroid normal Chest Chest palpation AND inspection: normal inspection of the chest Breast inspection: normal inspection of the breasts, normal inspection of the axillae Breast palpation: normal palpation of the breasts, normal palpation of the axillae Resp Effort AND Inspection: normal respiratory effort GI Inspection: normal to inspection Palpation: soft, no hepatosplenomegaly General: bladder normal to palpation External Female Exam: normal external appearance, normal appearance of the urethra Urethra: normal appearance of the urethra Speculum Exam - Vagina: normal appearance of the vagina, normal vaginal discharge Speculum Exam - Cervix: normal appearance of the cervix Bimanual Exam- Vagina AND Uterus: bladder normal to palpation, normal bimanual exam, uterus non-tender, other Bimanual Exam- Adnexa, other: adnexae non-tender Skin General: no rashes or lesions noted Neuro Motor: muscle tone normal throughout, no movement abnormalities noted Extrem General: normal to inspection, full ROM Assessment AND Plan Problems 1. Normal in multigravida Z34.80 IDRIS 11/28/18 PC Bree Ryan Plan Patient oriented to practice and discussed care expectations and screenings. ACOG book offered to patient. Discussed routine and specially indicated labs if needed- patient consents to testing. see problem list details for plan information. Genetic screening including carrier screenings, sequential screening, and NIPT screening offered to patient and patient chose: considering Orders Orders: Supplemental Info ACOG book given and patient encouraged to read about nutrition, exercise, weight gain, and food avoidance in . Coding Level of Care Code OB Routine Diagnoses Normal in multigravida Z34.80 04/29/18 1513 <Electronically signed by Simona Wilkerson MD> Date Simona Wilkerson MD Cosigner Signature: Date (if applicable) CC: CBC W/DIFF, AUTOMATED Collected: 04/29/2018 Status: F Source: ЕЛЕНА 9:29 AM [facility] [place] TYPE CODE TESTS RESULT OUT OF RANGE REFERENCE UNITS LAB L100.1000 4.4-11.0 K/mm3 Normal WBC 7.7 LAB L100.1200 4.2-5.4 M/mm3 Normal RBC 5.18 LAB L100.1300 12.0-15.0 g/dl Normal HGB 14.9 LAB L100.1400 37-47 % Normal HCT 43.6 LAB L100.1500 81-99 fL Normal MCV 84.2 LAB L100.1600 27.0-32.0 pg Normal MCH 28.8 LAB L100.1700 32-36 g/gl Normal MCHC 34.2 LAB L100.1810 11.6-14.6 % Normal RDW CV 13.1 LAB L100.1820 35.1-43.9 fl Normal RDW SD 40.4 LAB L100.1900 150-450 K/mm3 Normal PLT 271 LAB L100.2000 6.2-12.0 fl Normal MPV 10.2 LAB L100.2100 47-70 % High NEUT% 74.0 LAB L100.2200 19-41 % Low LY% 16.0 LAB L100.2300 0-10 % Normal MONO% 8.1 LAB L100.2400 0-5 % Normal EO% 1.6 LAB L100.2500 0-1 % Normal BASO% 0.3 LAB L100.2550 0.0-0.9 % Normal IM GRAN % 0.000 Result Comment: IG% - Immature Granulocytes (promyelocytes, myelocytes and metamyelocytes) > 1% indicates that a LEFT SHIFT is Present. LAB L100.2620 2.0-7.7 X10 3/uL Normal Absolute Neut 5.7 LAB L100.2720 0.83-4.51 X10 3/ul Normal Absolute Lymph 1.24 Performed By: #### L100.0100, B101.7450 #### [facility] [address] [place], [place], [id number] TYPE AND SCREEN Collected: 04/29/2018 Status: F Source: [place] 9:29 AM [facility] Order Comment: Reason for Type AND Screen/Red Cells: TYPE CODE TESTS RESULT OUT OF RANGE REFERENCE UNITS LAB B10.0800 A Normal BLOOD TYPE GEL POSITIVE LAB B100.4000 Normal Antibody NEGATIVE Screen Performed By: #### L100.0100, B101.7450 #### [facility] [address] [place], [place], [address] RUBELLA IGG Collected: 04/29/2018 Status: F Source: [place] 9:29 AM [facility] [place] TYPE CODE TESTS RESULT OUT OF RANGE REFERENCE UNITS LAB L509.4000 IU/mL Normal Rubella IgG 137.1 Result Comment: Antibody results Interpretation of Immune Status < 5 IU/ml Presumed Non-immune 5 - < 10 IU/ml Equivocal > or = 10 IU/ml Presumed Immune Performed By: #### L509.4000, L3890.6005 #### [facility] [address] [place], [place], [address] #### L3100.0390, L3100.0625 #### [facility] (refer to report for specific site) refer to report for address and phone number HIV - [facility] Collected: 04/29/2018 Status: F Source: [place] 9:29 AM [facility] [place] TYPE CODE TESTS RESULT OUT OF RANGE REFERENCE UNITS LAB L3890.6005 Nonreactive Normal HIV - [facility] Non-Reactive Performed By: #### L509.4000, L3890.6005 #### [facility] [address] [place], [address] #### L3100.0390, L3100.0625 #### [facility] (refer to report for specific site) refer to report for address and phone number HEPATITIS B SURFACE Collected: 04/29/2018 Status: F Source: [place]А [place] 9:29 AM [facility] [place] TYPE CODE TESTS RESULT OUT OF RANGE REFERENCE UNITS LAB L3100.0400 Negative Normal HB Negative SURF AG Result Comment: Performed at: [facility] [id number] Anatomy And Physiology Instructor: Rayray Parada PhD, Phone: [phone] Performed By: #### L509.4000, L3890.6005 #### [facility] [address] [place], [place] [id number] #### L3100.0390, L3100.0625 #### [facility] (refer to report for specific site) refer to report for address and phone number HEPATITIS C ANTIBODIES Collected: 04/29/2018 Status: F Source: [place] 9:29 AM [facility] [place] CODE TESTS RESULT OUT OF RANGE REFERENCE UNITS LAB L3100.0650 0.0-0.9 s/co ratio Normal HEP C AB 0.1 Result Comment: Negative: < 0.8 Indeterminate: 0.8 - 0.9 Positive: > 0.9 The CDC recommends that a positive HCV antibody result be followed up with a HCV Nucleic Acid Amplification test (447985). Performed By: #### L509.4000, L3890.6005 #### [facility] [address] [place] [address]. [place], [address] #### L3100.0390, L3100.0625 #### [facility] (refer to report for specific site) refer to report for address and phone number RAPID PLASMIN REAGIN Collected: 04/29/2018 Status: F Source: ЕЛЕНА (RPR) 9:29 AM [facility] [place] CODE TESTS RESULT OUT OF REFERENCE UNITS RANGE LAB L700.5000 NONREACTIVE NONREACTIVE Normal RPR Performed By: #### L700.5000 #### [facility] [address] [place], [address] FAX REQUEST Collected: 11/28/2017 Status: F Source: [facility] 9:10 AM [place] ([place] REPOSITORY TYPE CODE TESTS RESULT OUT OF REFERENCE UNITS RANGE LAB FAXTO FAX TO 419 Result Comment: [phone] Performed By: #### FERNANDO, RALPH #### Testing performed at [facility] [address] [facility] [address] [place] [address] HCV AB Collected: 11/28/2017 Status: F Source: [facility] 9:10 AM [place] RE[place] TYPE CODE TESTS RESULT OUT OF RANGE REFERENCE UNITS LAB HCAB 0.0-0.9 s/co ratio HEP C <0.1 VIRUS AB Result Comment: (NOTE) Negative: < 0.8 Indeterminate: 0.8 - 0.9 Positive: > 0.9 The CDC recommends that a positive HCV antibody result be followed up with a HCV Nucleic Acid Amplification test (907705). PERFORMED AT [facility] Performed By: #### FERNANDO, RALPH #### Testing performed at [facility] [address] [place] [address] [place] [address] MEASLES,MUMP,RUBELLA Collected: Status: F Source: [facility] 11/28/2017 9:10 AM [facility] ([place] REPOS[place] TYPE CODE TESTS RESULT OUT OF REFERENCE UNITS RANGE LAB XMMR1 Immune >0.99 index RUBELLA AB, 4.93 IGG Result Comment: (NOTE) Non-immune <0.90 Equivocal 0.90 - 0.99 Immune >0.99 LAB XMMR2 Immune >29.9 AU/mL RUBEOLA AB, IGG 228.0 Result Comment: (NOTE) Negative <25.0 Equivocal 25.0 - 29.9 Positive >29.9 Presence of antibodies to Rubeola is presumptive evidence of immunity except when acute infection is suspected. LAB XMMR3 Immune >10.9 AU/mL MUMPS ABS, 66.0 IGG Result Comment: (NOTE) Negative <9.0 Equivocal 9.0 - 10.9 Positive >10.9 A positive result generally indicates past exposure to Mumps virus or previous vaccination. PERFORMED AT [facility] Performed By: #### RALPH KING #### Testing performed at [facility] [address] [facility] [place] [address] ALLERGIES ALLERGIES DATE TYPE / CODE NAME / CODE REACTION SEVERITY SOURCE 10/07/2018 Drug No Known Unknown [facility] Allergy/4160 Allergies/F00 Hospital 23714(SNOMED 2787972(RXNOR Repository CT) M) ENCOUNTERS ENCOUNTERS ADMIT/DISCHARGE ACCOUNT NUMBER ADMITTING ENCOUNTER LOCATION SOURCE CLASS 10/07/2018/10/07/19 [id number] Ambulatory BMSBuilding: [place] 19 [facility] Repository 09/21/2018/09/21/20 [id number] Ambulatory BMSBuilding: [place] 18 [facility] Repository 09/04/2018 [id number] Ambulatory [facility] ding:PAVLAB Repository 09/04/2018/09/04/20 [id number] Ambulatory BMSBuilding: [place] 18 [facility] Repository 08/07/2018/08/07/20 [id number] Ambulatory BMSBuilding: [place] 18 [facility] Repository 07/06/2018 [id number] Ambulatory Building:[facility] Repository 07/06/2018/07/06/20 [id number] Ambulatory BMSBuilding: [place] 18 [facility] Repository 06/01/2018/06/01/20 [id number] Ambulatory BMSBuilding: [place] 18 [facility] Repository 04/29/2018 [id number] Ambulatory [facility] ding:LABSPEC Repository 04/29/2018 [id number] Ambulatory [facility] ding:POLAB3 Repository 04/29/2018/04/29/20 [id number] Ambulatory BMSBuilding: [place] 18 [facility] Repository 11/28/2017 [id number] [address] [place] [address] ([place]) Repository PAYERS PAYERS ENCOUNTER GUARANTOR PAYER SUBSCRIBER SOURCE 10/07/2018 ALEX F Primary JARED S [place] [id number] [place] Insurance:ANTHEMPolic SHAFERDOB[place] Number: [id number] Hospital [address]Jws: (419) [id number] Repository [phone] (HP) mac Date:9563-03-05TJ [address] [place] [address]CT: 10/07/2018 Secondary NOT GIVENUNK [place] Insurance:SELF PAY [facility] Number: Effective Repository Date:2018-10-07 09/21/2018 ALEX Donovan Primary JARED S [place] [id number] [place] Insurance:ANTHEMPolic SHAFERDOB: [place] Number: [id number] Hospital [address]Uee: (419) [id number] Repository [phone] (HP) mac Date:1001-84-30MI [address] [place] [address]JH: 09/21/2018 Secondary NOT GIVENUNK [place] Insurance:SELF PAY [facility] Number: Effective Repository Date:2018-09-21 09/04/2018 ALEX Donovan Primary JARED [place] [id number] [place] Insurance:ANTHEMPolic SHAFERDOB: [place] Number: [id number] Hospital [address]Vni: (419) [id number] Repository [phone] (HP) mac Date:7411-98-73IJ [address] [place] [address] 116[address]WH: 09/04/2018 Secondary NOT GIVENUNK [place] Insurance:SELF PAY [facility] Number: Effective Repository Date:2018-09-04 09/04/2018 ALEX [id number] Primary JARED S [place], Insurance:ANTHEMPolic SHAFERDOB: [place] [address]Tti: y Number: [id number] Hospital [id number] Repository (HP) mac Date:2747-81-50QC [address] [place] [address] [place] [address]XC: 09/04/2018 Secondary NOT GIVENUNK [place] Insurance:SELF PAY [facility] Number: Effective Repository Date:2018-09-04 08/07/2018 ALEX [id number] Primary JARED Christiansen [facility], Insurance:ANTHEMPolic SHAFERDOB: [place] [address]Gcx: y Number: [id number] Hospital [id number] Repository () mac Date:4645-48-64XZ [address] [place] [address]AC: 08/07/2018 Secondary NOT GIVENUNK [place] Insurance:SELF PAY [facility] Number: Effective Repository Date:2018-08-07 07/06/2018 ALEX FRANCIAFERDOB: Primary JARED Banks [facility]'s [id number] Insurance:ANTHEMPolic SHAFERDOB: [facility], y Number: [id number] Repository [place] [address]Mpv: [id number] [address] [place] [address] mac Date: [place] () [address] 07/06/2018 ALEX [id number] Primary JARED Christiansen [facility], Insurance:ANTHEMPolic SHAFERDOB: [place] [address]Yok: y Number: [id number] Hospital [id number] Repository () mac Date:0345-92-23AT [address] [place] [address]IU: 07/06/2018 Secondary NOT GIVENUNK [place] Insurance:SELF PAY [facility] Number: Effective Repository Date:2018-06-01 06/01/2018 ALEX [id number] Primary JARED Christiansen [facility], Insurance:ANTHEMPolic SHAFERDOB: [place] [address]Vkl: y Number: [id number] Hospital [id number] Repository () mac Date:5057-69-15MR [address]BYJCCG[address] [address]FG: 06/01/2018 Secondary NOT GIVENUNK [place] Insurance:SELF PAY [facility] Number: Effective Repository Date:2018-06-01 04/29/2018 ALEX [id number] Primary JARED [place] [facility], Insurance:ANTHEMPolic SHAFERDOB: [facility] [address]Exf: y Number: [id number] Hospital [id number] Repository (HP) mac Date:0843-43-59QS [address], [place] [address]RM: 04/29/2018 Secondary NOT GIVENUNK [place] Insurance:SELF PAY [facility] Number: Effective Repository Date:2018-04-29 04/29/2018 ALEX [id number] Primary JARED [place] Insurance:ANTHEMPolic [facility] [place] Number: [id number] Hospital [address]Nrl: (419) [id number] Repository [phone] (HP) mac Date:1406-30-14XZ [address]WFCYKT, [place] [address]AX: 04/29/2018 Secondary NOT GIVENUNK [place] Insurance:SELF PAY [facility] Number: Effective Repository Date:2018-04-29 04/29/2018 ALEX [id number] Primary JARED [place] Insurance:ANTHEMPolic SHAFERDOB[facility] [place] Number: [id number] Hospital [address]Ayw: (419) [id number] Repository [phone] (HP) mac Date:4482-06-29PQ [address]FAHHP, [place] [address]HD: 04/29/2018 Secondary NOT GIVENUNK [place] Insurance:SELF PAY [facility] Number: Effective Repository Date:2018-04-29
== END ==
PROVIDERS: Family Provider Student in an Organized Health Care Education/Training Program; PCP Student in an Organized Health Care Education/Training Program; Referring Provider Nurse Practitioner Women's Health; Visit Provider Nurse Practitioner Women's Health
DX: Z34.90 Encounter for supervision of normal pregnancy, unspecified, unspecified trimester (principal)
CPT/HCPCS: 36415; 82950; 85025

== ENCOUNTER → 2018-11-06 13:23 | Outpatient (CLI) | payer BC, SELFPAY ==
[2018-11-06 10:08] VITALS: BMI 22.3
== END ==
PROVIDERS: Family Provider Student in an Organized Health Care Education/Training Program; PCP Student in an Organized Health Care Education/Training Program; Referring Provider Obstetrics & Gynecology; Visit Provider Obstetrics & Gynecology
DX: Z34.90 Encounter for supervision of normal pregnancy, unspecified, unspecified trimester (principal)
CPT/HCPCS: 87081

== ENCOUNTER 2018-12-02 17:15 | Inpatient (IN) | payer BC, SELFPAY ==
[2018-12-02 14:08] VITALS: BMI 25.2
[2018-12-02 17:20] VITALS: BMI 25.8
[2018-12-02] MEDS: Lactated Ringers 1,000 ML 50 ML IV (17:55)
[2018-12-02] MEDS: Oxytocin 30 units/NS 500 ml 30 UNITS/500 ML IV.SOLN IV (18:11)
[2018-12-02 18:13] LABS: Hematocrit 39.7 % (37-47); Hemoglobin 13.6 g/dl (12.0-15.0); Mean Corp Hgb Conc 34.3 g/gl (32-36); Mean Corpuscular Hgb 30.1 pg (27.0-32.0); Mean Corpuscular Volume 87.8 fL (81-99); Mean Platelet Vol. 10.5 fl (6.2-12.0); Platelet Count 223 K/mm3 (150-450); RBC Distribution Width CV 13.2 % (11.6-14.6); RBC Distribution Width SD 41.5 fl (35.1-43.9); Red Blood Count 4.52 M/mm3 (4.2-5.4); White Blood Count 16.3 K/mm3 (4.4-11.0)
[2018-12-02 18:14] LABS: Scan Indicated on CBC? Y/N NO
--- NOTE | 2018-12-02 21:52 | PCM.HPOB.BLA ---
- Problem List (1) Oligohydramnios in vines in third trimester Status: Acute (2) Normal in multigravida Status: Acute Comment: PRR IDRIS 11/29/18 gender surprise PC Bree Ryan (3) Status: Acute Qualifiers: Comment: declines genetic and carrier screening, declines NTD screening. Anatomy us normal History and Physical Date of Admission: 12/02/18 Intake Vital Signs 12/02/18 Height 5 ft 9 in 12/02/18 Weight: 171 lb 12/02/18 Body Mass Index (BMI) 25.2 12/02/18 Blood Pressure 124/80 H 12/02/18 Body Mass Index (BMI) 22.3 11/25/18 Body Mass Index (BMI) 22.3 Intake Visit Reasons: 40 WK OB Chief Complaint: est ob Packing Room Supervisor Required: No Is patient in pain?: No Allergies No Known Allergies Allergy (Verified 12/02/18 14:08) Medications Vit No.130/Iron/Folic [ Tablet] 1 tab PO BID 03/28/16 [History Confirmed 12/02/18] Last Menstral Period: 02/21/18 Zika: Zika virus screening: Negative : No PFSH PFSH Medical History Abnormal Pap smear of cervix (Acute) Surgical History Status post colposcopy (Resolved) Family History Mother Breast cancer Grandmother Breast cancer Social History Smoking Status: Never smoker alcohol intake: never substance use type: does not use caffeine: No what type of physical activity do you participate in: none seatbelt use: always do you feel safe at home: Yes additional social history: -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 Date Name GA/Weeks Outcome Route Bth Weight Infant Gen Labor Lgth Anesthesia Del Locatn Provider FOB 03/28/16 Bree 40 live - full term 8 lbs 5 oz Female 22 hours epidural [facility] Dr. Heike Davis Delivery Date: 03/28/16 On 04/29/18 @ 08:36 Anat Campbell No issues during . Baby and patient had to receive antibiotic afterwards. Baby had fever. Patient had issues with uterus to contract HPI 40 WK OB: Details: ALEX THOMAS is a 33 year old who presents for routine OB visit. OB Visit IDRIS Calculator Estimated Delivery Date 11/29/18 Based on Ultrasound Date 04/29/18 Current WG 40w 3d Number 1 Expected Delivery Route/Plan Specific Issue/Plans flu vaccine: given tdap vaccine: given rhogam: NA LARC form signed: declines labor support person: Ryan pain management: epidural cut cord/dad catch: yes : yes PP control planned: condoms special requests: [] Initial Weight: 137 lb Date EGA Weight BP Urine Prot Glucose FHR FuHt Pres Mov CTX Dilation Effaced St Visit Note 04/29/18 9w 3d 137 lb (+0 oz) 133/80 06/01/18 14w 1d 138 lb 8 oz (+1 lb 8 oz) 118/70 Negative Negative 160 no vb cramping declines genetic testing, considering NTD screening 07/06/18 19w 1d 140 lb 2 oz (+3 lb 2 oz) 102/54 Negative Negative 160 had small bleeding a few weeks ago and resolved spontaneously, no cramping 08/07/18 23w 5d 149 lb (+12 lb) 100/62 Negative Negative 145 23 Active absent No VB, LOF. Had some tightening 1 week ago and resolved. 09/04/18 27w 5d 155 lb (+18 lb) 112/80 Negative Negative 168 27 Active absent Doing well. No VB, LOF. 09/21/18 30w 1d 159 lb 6 oz (+22 lb 6 oz) 110/64 Negative Negative 135 30 Active absent no vb lof good fm no regular ctx 10/07/18 32w 3d 160 lb (+23 lb) 122/70 Negative Negative 135 33 Active absent no vb lof good fm n oregular ctx 10/21/18 34w 3d 164 lb (+27 lb) 90/60 Negative Negative 135 35 Active absent no vb lof good fm no regular ctx 11/06/18 36w 5d 165 lb (+28 lb) 120/76 Negative Negative 130 36 Active absent no vb lof good fm no regular ctx 11/13/18 37w 5d 166 lb 4 oz (+29 lb 4 oz) 118/80 Negative Negative 132 37 Cephalic Active absent no CTX, LOF, VB. Declines internal exam 11/20/18 38w 5d 169 lb (+32 lb) 120/68 Negative Negative 130 39 Cephalic Active absent no vb lof good fm no regualr ctx 11/25/18 39w 3d 169 lb 4 oz (+32 lb 4 oz) 110/76 Negative Negative 130 40 Cephalic Active absent no vb lof good fm n oregular ctx 12/02/18 40w 3d 171 lb (+34 lb) 124/80 Negative Negative 130 39 Cephalic Active absent no vb lof good fm no regular ctx Visit Notes Visit Date: 12/02/18 ??no vb lof good fm no regular ctx ??Simona Merritt MD on 12/02/18 Visit Date: 11/25/18 ??no vb lof good fm n oregular ctx ??Simona Merritt MD on 11/29/18 Visit Date: 11/20/18 ??no vb lof good fm no regualr ctx ??Simona Merritt MD on 11/20/18 Visit Date: 11/13/18 ??no CTX, LOF, VB. Declines internal exam ??ALEXIS Baeza on 11/13/18 Visit Date: 11/06/18 ??no vb lof good fm no regular ctx ??Simona Merritt MD on 11/06/18 Visit Date: 10/21/18 ??no vb lof good fm no regular ctx ??Simona Merritt MD on 10/21/18 Visit Date: 10/07/18 ??no vb lof good fm n oregular ctx ??Simona Merritt MD on 10/07/18 Visit Date: 09/21/18 ??no vb lof good fm no regular ctx ??Simona Merritt MD on 09/21/18 Visit Date: 09/04/18 ??Doing well. No VB, LOF. ??ALEXIS Baeza on 09/04/18 Visit Date: 08/07/18 ??No VB, LOF. Had some tightening 1 week ago and resolved. ??ALEXIS Baeza on 08/07/18 Visit Date: 07/06/18 ??had small bleeding a few weeks ago and resolved spontaneously, no cramping ??Simona Merritt MD on 07/06/18 Visit Date: 06/01/18 ??no vb cramping declines genetic testing, considering NTD screening ??Simona Merritt MD on 06/01/18 Visit Date: 04/29/18 ??No visit notes to display ACOG First Trimester First Trimester: Desire for , Alcohol, Tobacco Cessation, Illicit/Recreational Drug/Substance Use, Intimate Partner Violence, Barriers to care, Unstable Housing, Communication Barriers, Environmental/Work Hazards, Anticipated Course of Care, Toxoplasmosis Precations, Use of Any medications, Sexual activity, Exercise, Dental Care, Sauna/Hot tub use, Seat Belt use, Childbirth classes/Hospital facilities, , Travel, Indications for US and Screening for Aneuploidy Second Trimester Second Trimester: Signs and Symptoms of Labor, Selecting a care provider, Reproductive Life Planning, Care Planning, Tobacco Cessation, Depression/Anxiety and Intimate Partner Violence Third Trimester Third Trimester: Pain Management Plans, Labor support person(s), Immediate Larc, Movement Monitoring and Infant Feeding Yes ; discussed Trial of Labor after Counseling or discussed Circumcision preference Diagnostics Diagnostics Labs Hct 39.9 % (37-47) 09/04/18 Hgb 13.5 g/dl (12.0-15.0) 09/04/18 Chlam trachomat DNA PCR Negative (Negative) 04/29/18 N.gonorrhoeae DNA (PCR) Negative (Negative) 04/29/18 Glucose 1 Hr 50 gm 70 mg/dL (70-140) 09/04/18 Details: HIV: Urine Culture: Sequential Screen: NIPT Screen: ROS Const Reports system reviewed and no additional complaints, except as docu Card Reports system reviewed and no additional complaints, except as docu Resp Reports system reviewed and no additional complaints, except as docu GI Reports system reviewed and no additional complaints, except as docu, Reports nausea Reports system reviewed and no additional complaints, except as docu Musc Reports system reviewed and no additional complaints, except as docu Exam Const General: cooperative, healthy appearing, comfortable, anxious HENMT Head: normal to inspection Nose: external nose normal Face and sinus: normal facial exam Neck Neck: normal visual inspection, full ROM, no lymphadenopathy Thyroid: thyroid normal Chest Chest palpation & inspection: normal inspection of the chest Resp Effort & Inspection: normal respiratory effort GI Inspection: normal to inspection Palpation: soft, other (gravid uterus) Other: infant vertex and appropriate size for gestational age Other: Cervical Exam: Extrem General: pedal edema Results [id number] Office Urine Glucose Negative Last Edit by Cira Frausto on 12/02/18 14:14 Office Urine Protein Negative Last Edit by Cira Frausto on 12/02/18 14:14 Assessment & Plan Problems 1. 40 weeks gestation of Z3A.40 declines genetic and carrier screening, declines NTD screening. Anatomy us normal 2. Normal in multigravida Z34.80 PRR IDRIS 11/29/18 gender surprise PC Bree Ryan 3. Oligohydramnios in third trimester, single or unspecified fetus O41.03X0 Plan oligohydramnios- plan IOL now with pitocin. epidural PRN, arom PRN Orders Orders: POC Urinalysis 2 Dip (Clinic) Today OB Limited With Biometrics Today Z34.90 Coding Level of Care Code OB Routine Diagnoses 40 weeks gestation of Z3A.40 ??Weeks of gestation: 40 weeks Normal in multigravida Z34.80 Oligohydramnios in third trimester, single or unspecified fetus O41.03X0 ??Fetus number: single or unspecified fetus ??Trimester: third trimester UPDATE- I have seen the patient and performed any clinically relevant updates to the history and physical exam. Simona Merritt MD
[2018-12-03] MEDS: Lactated Ringers 1,000 ML 50 ML IV ×2 (00:58→02:58)
[2018-12-03] MEDS: fentaNYL-bupivacaine (epidural) 100 ML BAG EPIDURAL (02:55)
[2018-12-03] MEDS: Oxytocin 30 units/NS 500 ml 30 UNITS/500 ML IV.SOLN 334 UNITS IV (05:24)
[2018-12-03] MEDS: Methylergonovine 0.2 MG/ML Ampul IM (05:32)
[2018-12-03] MEDS: Carboprost Tromethamine 250 MCG/ML Ampul IM (05:37)
[2018-12-03] MEDS: Ondansetron 4 MG/2 ML Vial IV (05:50)
[2018-12-03] MEDS: Oxytocin 30 units/NS 500 ml 30 UNITS/500 ML IV.SOLN 167 UNITS IV (05:54)
[2018-12-03 10:45] VITALS: BP 90/57; PULSE 93; RESP 18; TEMP 36.2; O2SAT 99
--- NOTE | 2018-12-03 10:47 | NURSING ---
1030 pt up to br to void -pt void 700 cc- pt became light headed when up -pt assisted back to wheelchair
--- NOTE | 2018-12-03 11:35 | NURSING ---
pt up in room feeling better denies feeling dizzy
[2018-12-03] MEDS: Naproxen 250 MG Tablet PO (14:25)
[2018-12-03 15:55] VITALS: BP 110/54; PULSE 68; RESP 16; TEMP 36.7; O2SAT 99
[2018-12-03 20:40] VITALS: BP 99/56; PULSE 80; RESP 16; TEMP 36.7
[2018-12-04 00:16] VITALS: BP 93/45; PULSE 71; RESP 16; TEMP 36.6
[2018-12-04 04:24] VITALS: BP 91/41; PULSE 63; RESP 14; TEMP 36.8
--- NOTE | 2018-12-04 04:40 | PCM.OB.VAG ---
- Problem List (1) Oligohydramnios in vines in third trimester Status: Acute (2) Normal in multigravida Status: Acute Comment: PRR IDRIS 11/29/18 gender surprise PC Bree Ryan (3) Status: Acute Qualifiers: Comment: declines genetic and carrier screening, declines NTD screening. Anatomy us normal Vaginal Delivery Maternal Presentation: Medically Indicated Induction iol oligo Method of Induction: Pitocin Amniotic Membrane Rupture Type: Artificial Amniotic Fluid Description: Clear Final IDRIS: 11/29/18 Gestational age: 40 Weeks and 5 Days Date of Procedure: 12/03/18 Pre-Operative Diagnosis: iol oligo Post-Operative Diagnosis: same Surgery/ Procedure Performed: Spontaneous Vaginal Delivery Type of Anesthesia: Epidural Description of Procedure: Patient began pushing and delivered the head in the LINDA presentation. The head was delivered atraumatically. The anterior and posterior shoulders delivered without complication followed by the rest of the infant and the was placed on the maternal abdomen. Delayed cord clamping was employed for approximately 60 seconds. Cord was clamped and cut and gentle traction was applied to the cord and the placenta delivered spontaneously immediately following it was noted to be intact with three-vessel cord. The perineum and vagina were inspected and noted to have no laceration. EBL was 600 cc. increased bleeding was noted and some retained membranes were noted. placenta was noted to be of normal size but bilobar in appearance. banjo currett was used to remove additional membranes and manual uterine exploration was consistent with complete removal of all products. Patient and infant tolerated delivery well. Placental Delivery Description: Spontaneous Placenta Disposition: [facility] Cord Entanglement: None Estimated Blood Loss: 600 Infant A gender: Male Episiotomy Description: None Laceration: None Medications given after delivery: IV Pitocin Complications: None
[2018-12-04 06:00] VITALS: BP 100/53
--- NOTE | 2018-12-04 07:58 | PCM.PN.OB ---
Patient Problems: Active and Suspected Problems (Last Reviewed 12/02/18 @ 14:08 by Cira Frausto) Oligohydramnios in vines in third trimester (Acute) Subjective: doing well no complaints pain controlled no CP SOB N V ambulating well tolerating po lochia moderate, going well - Physical Exam General: Alert, Oriented x3 Abdomen: Soft, Non Tender - FF below U Vital Signs Temp Pulse Resp BP Pulse Ox 98.3 F 63 14 100/53 L 99 12/04/18 04:24 12/04/18 04:24 12/04/18 04:24 12/04/18 06:00 12/03/18 15:55 Oxygen Delivery Method Room Air Weight: 172 lb 9.951 oz Body Mass Index (BMI) 25.8 Intake and Output for Last 24 Hours 12/02/18 12/03/18 12/04/18 23:59 23:59 23:59 Intake Total 2362 / 2362 Output Total 1150 / 1150 Balance 1212 / 1212 Medical Necessity - Tobacco Use Smoking Status: Never smoker Assessment/Plan All Active Problems (Last Reviewed 12/02/18 @ 14:08 by Cira Frausto) Oligohydramnios in vines in third trimester (Acute) (Acute) Normal in multigravida (Acute) s/p PPD # 1 1. routine post delivery care 2. breast feeding- support given 3. rh positive 4. rubella immune 5. Plans home today
--- NOTE | 2018-12-04 07:59 | PCM.DCVAG ---
Additional Instructions: If you experience any of the following, contact your healthcare provider. Bleeding that soaks a pad every hour for 2 hours Fever 100.4 or higher Unrelieved incision or abdominal pain Swelling, redness, discharge or bleeding from your incision or episiotomy site Your incision begins to separate Problems urinating (including inability to urinate or burning while urinating). Visual changes Severe headache Flu-like symptoms Pain or redness in one of both of your breasts Pain, warmth, tenderness or swelling in your legs, especially the calf area Frequent nausea and vomiting Symptoms of depression or anxiety If you experience any of the following, call 911 or go to the nearest Emergency Room. Chest pain Problems breathing Seizure activity Partial or complete paralysis of a body part, slurred speech, weakness or drooping of the face, or a sudden inability to walk or hold your balance Allergies/Adverse Reactions: Allergies No Known Allergies Allergy (Verified 12/02/18 14:08) Medications to take at Discharge Vit No.130/Iron/Folic [ Tablet] 1 tab PO BID 03/28/16 Primary Care Physician: Orlin Beltre DO [Primary Care Provider] - Test Results: Test results from this visit will be discussed in further detail at your follow-up appointment, if applicable.
--- NOTE | 2018-12-04 08:00 | DCINST_ITS ---
Additional Instructions: If you experience any of the following, contact your healthcare provider. * Bleeding that soaks a pad every hour for 2 hours * Fever 100.4 or higher * Unrelieved incision or abdominal pain * Swelling, redness, discharge or bleeding from your incision or episiotomy site * Your incision begins to separate * Problems urinating (including inability to urinate or burning while urinating). * Visual changes * Severe headache * Flu-like symptoms * Pain or redness in one of both of your breasts * Pain, warmth, tenderness or swelling in your legs, especially the calf area * Frequent nausea and vomiting * Symptoms of depression or anxiety If you experience any of the following, call 911 or go to the nearest Emergency Room. * Chest pain * Problems breathing * Seizure activity * Partial or complete paralysis of a body part, slurred speech, weakness or drooping of the face, or a sudden inability to walk or hold your balance Allergies/Adverse Reactions: Allergies No Known Allergies Allergy (Verified 12/02/18 14:08) Medications to take at Discharge Vit No.130/Iron/Folic [ Tablet] 1 tab PO BID 03/28/16 Primary Care Physician: Orlin Beltre DO [Primary Care Provider] - Test Results: Test results from this visit will be discussed in further detail at your follow- up appointment, if applicable.
[2018-12-04 08:13] VITALS: BP 95/54; PULSE 70; RESP 18; TEMP 36.5; O2SAT 99
[2018-12-04] MEDS: Naproxen 250 MG Tablet PO (08:26)
== END 2018-12-04 12:15 | disposition home or self-care (01) | DRG 806 ==
PROVIDERS: Admitting Provider Obstetrics & Gynecology; Family Provider Student in an Organized Health Care Education/Training Program; PCP Student in an Organized Health Care Education/Training Program; Visit Provider Obstetrics & Gynecology
DX: O41.03X0 Oligohydramnios, third trimester, not applicable or unspecified (principal); O72.2 Delayed and secondary postpartum hemorrhage; Z3A.40 40 weeks gestation of pregnancy; Z37.0 Single live birth
CPT/HCPCS: 59050; 85027; 86850; 86900; 99218; J7120; G0378; J2405

== ENCOUNTER → 2018-12-16 14:05 | Outpatient (CLI) | payer BC, SELFPAY ==
[2018-12-16 11:10] VITALS: BMI 25.8
[2018-12-16 11:24] VITALS: BMI 25.8
--- NOTE | 2018-12-16 14:07 | US_ITS ---
STUDY: ULTRASOUND BREAST - LEFT REASON FOR EXAM: Female, 33 years old. Palpable lump left breast. The patient is 2 weeks . TECHNIQUE: Axial and longitudinal images of the LEFT breast were performed with a high resolution ultrasound transducer. COMPARISON: None. FINDINGS: LEFT Breast: The palpable abnormality corresponds to a 4.9 cm x 3.7 cm x 1.6 cm solid isoechoic nodule with cystic areas within it. This is located at the 11:00 position of the breast at 10 cm from the nipple. Increased vascularity is seen. A biopsy is recommended for further evaluation. US/Breast Limited Unilateral IMPRESSION: The palpable abnormality corresponds to a 4.9 cm x 3.7 cm x 1.6 cm complex solid cystic mass as described. A biopsy is recommended for further evaluation. ASSESSMENT CATEGORY: BIRADS Category 4: Suspicious - Biopsy Should Be Considered. A letter regarding these results will be sent to the patient by the facility within 30 days. Electronically Signed: Joe Batista, at 15:28 EDT , Service support ,
== END ==
PROVIDERS: Family Provider Student in an Organized Health Care Education/Training Program; PCP Student in an Organized Health Care Education/Training Program; Visit Provider Nurse Practitioner Women's Health
DX: N63.20 Unspecified lump in the left breast, unspecified quadrant (principal)
CPT/HCPCS: 76642

== ENCOUNTER → 2018-12-24 11:51 | Outpatient (CLI) | payer BC, SELFPAY ==
--- NOTE | 2018-12-24 | IMM_PTH ---
PATIENT: ALEX THOMAS LOC: [facility] U#:[id number] AGE/SX: 40/F ROOM: RE12/24/[address]: Dr. Michel Pak MD : 1985 BED: DIS: SPEC #: [id number] RECD: 12/25/18 12:06 STATUS: RENÉ REJennie #: [id number] OBINNA: 12/24/18 00:[address]: Michel Pak DEPT: IMMUNOHISTOCHEMISTRY RECD BY: Deana Villagomez ENTERED: 12/25/18 12:06 SP TYPE: IMMUNO OTHR DR: Dr. Orlin Beltre DO Tissues: Left breast, NOS Procedures: Calponin-1(initial) P40 (add) PHYSICIAN & INSTITUTION [place] [id number] SPECIMEN INFORMATION: Tissue Source: Left breast Clinical Info: Abnormal left breast ultrasound Specimen Number: [id number] CPT code: 05420, 80732 METHODOLOGY: Deparaffinized sections of prefer/formalin-fixed tissue or PAP/DQ stained slides are incubated with monoclonal/polyclonal antibodies/oligonucleotide probes. Localization is made via biotin free immunoperoxidase method. Appropriate controls are performed and reacted as expected. Results on target cell population are indicated in the following table: RESULTS: ANTIBODY / CLONE RESULT P40 (BC28) positive Calponin-1 (OX866Z) positive These tests were developed and their performance characteristics determined by [facility]. They may not have been cleared or approved by the U.S. Food and Drug Administration. The FDA has determined that such clearance or approval is not necessary. INTERPRETATION: Left breast core biopsy: Negative for malignancy. SJ:jeffery 12/25/18
--- NOTE | 2018-12-24 08:30 | BRBX_PTH ---
PATIENT: ALEX THOMAS LOC: [facility] U#:[id number] AGE/SX: 40/F ROOM: RE12/24/[address]: Dr. Michel Pak MD : 1985 BED: DIS: SPEC #: [id number] RECD: 12/24/18 11:09 STATUS: RENÉ JEREL #: [id number] OBINNA: 12/24/18 08:[address]: Michel Pak DEPT: SURGICAL PATHOLOGY RECD BY: Rashard Carson ENTERED: 12/24/18 13:04 SP TYPE: BREAST BX OTHR DR: Dr. Orlin Beltre DO Tissues: Left breast, NOS Procedures: Surgery Specimen Level IV HEADER OPERATION: Left breast core biopsy PRE-OP DIAGNOSIS: Left breast abnormal ultrasound TISSUE SUBMITTED: Left breast tissue MICROSCOPIC DIAGNOSIS Left breast, core biopsy: Fragments of benign breast tissue with focal ductal dilatation and extensive lactational changes. Negative for atypia or malignancy. See comment. SJ:jeffery 12/25/18 COMMENT Immunohistochemistry ([id number]) supports the above diagnosis. Correlation with clinical, radiologic findings and appropriate follow up are necessary. Case has been reviewed in consultation with Dr. Hawkins who concurs with the above diagnosis. IDC:CE MICROSCOPIC DESCRIPTION Slides are reviewed. GROSS DESCRIPTION Received in fixative is one container labeled with the patient's name and designated left breast tissue. The specimen consists of three sweeney-pink needle core biopsies ranging in length from 1 to 1.5 cm. The specimen is totally submitted in one cassette. / CE:jeffery 12/24/18 TC:5 CPT: 89086
[2018-12-24 08:33] VITALS: BMI 25.8
== END ==
PROVIDERS: Family Provider Student in an Organized Health Care Education/Training Program; PCP Student in an Organized Health Care Education/Training Program; Referring Provider Surgery; Visit Provider Surgery
DX: R92.8 Other abnormal and inconclusive findings on diagnostic imaging of breast (principal)
CPT/HCPCS: 88305; 88341; 88342

== ENCOUNTER → 2019-08-16 09:25 | Outpatient (CLI) | payer BC, SELFPAY ==
[2019-07-05 08:58] VITALS: BMI 25.8
--- NOTE | 2019-08-16 09:27 | US_ITS ---
STUDY: ULTRASOUND BREAST - LEFT REASON FOR EXAM: Female, 34 years old. 6 TECHNIQUE: Axial and longitudinal images of the LEFT breast were performed with a high resolution ultrasound transducer. # OF IMAGES: [id number] COMPARISON: None. FINDINGS: LEFT Breast: Comparison was made to the previous examination dated December 24, 2018. This revealed a hypoechoic texture with some cysts present within, this measures approximately 1.3 x 0.4 cm approximately in the upper outer quadrant in the upper inner quadrant of the left breast has the appearance of the focal area of fibrocystic disease. A metallic clip is noted in the area that followed the biopsy before. Please refer to the biopsy report that was done earlier. No evidence of malignancy noted in this examination. US/Breast Limited Unilateral IMPRESSION: Focal area of fibrocystic disease is upper inner quadrant of the left breast less prominent than before Electronically Signed: [place], at 13:07 EST Tel , Service support ,
== END ==
PROVIDERS: Family Provider Student in an Organized Health Care Education/Training Program; PCP Student in an Organized Health Care Education/Training Program; Referring Provider Obstetrics & Gynecology; Visit Provider Obstetrics & Gynecology
DX: N63.20 Unspecified lump in the left breast, unspecified quadrant (principal)
CPT/HCPCS: 76642

== ENCOUNTER 2021-03-26 15:14 | Emergency (ER) | payer BC, SELFPAY ==
[2020-07-10 10:19] VITALS: BMI 19.8
[2021-03-26 15:15] VITALS: BP 169/88; PULSE 62; RESP 18; TEMP 36.9; O2SAT 98; BMI 19.9
[2021-03-26] MEDS: 0.9% Normal Saline 1,000 ML 1000 ML IV (15:50)
[2021-03-26 16:02] LABS: Absolute Lymphocyte Count 0.69 X10^3/uL (0.83-4.51); Absolute Neutrophil Count 10.4 X10^3/uL (2.0-7.7); Basophil# 0.03 X10^3/uL; Basophil% 0.3 % (0-1); Eosinophil# 0.02 X10^3/uL; Eosinophils% 0.2 % (0-5); Hematocrit 47.3 % (37-47); Hemoglobin 15.7 g/dL (12.0-15.0); Lymphocyte # 0.69 X10^3/ul (0.83-4.51); Lymphocyte % 5.9 % (19-41); Mean Corp Hgb Conc 33.2 g/dL (32-36); Mean Corpuscular Volume 84.3 fL (81-99); Monocyte# 0.53 X10^3/uL; Monocyte% 4.5 % (0-10); NRBC Flagged by Analyzer 0 % (0-5); Neutrophil # 10.42 X10^3/uL (2.7-7.7); Neutrophil % 88.8 % (47-70); Platelet Count 274 K/mm3 (150-450); RBC Distribution Width SD 39.9 fl (35.1-43.9); Red Blood Count 5.61 M/mm3 (4.2-5.4); White Blood Count 11.7 K/mm3 (4.4-11.0)
[2021-03-26 16:08] LABS: Anion Gap 6 (5-15); BUN 8 mg/dL (7-18); BUN/Creat Ratio 8.9 RATIO (10-20); Calcium,Total 9.5 mg/dL (8.5-10.1); Chloride 104 mmol/L (98-107); EST Glomerular Filtration Rate 76 mL/min (>60); Est Glom Filt Rate - Afr Amer 92 mL/min (>60); Estimated Creatinine Clearance 85.14 ml/min; Glucose 127 mg/dL (74-106); Sodium Level 136 mmol/L (136-145)
[2021-03-26 16:41] LABS: Bacteria 0 SEEN /hpf (None Seen); Mucous, Urine 0 SEEN /hpf (<or=2+); Red Blood Cells-Urine 0 SEEN /hpf (0-5); White Blood Cells 0 SEEN /hpf (0-5)
[2021-03-26 16:43] LABS: Color, Urine Yellow (Yellow); Glucose, Dipstick Normal (Normal); Ketone-Dipstick 5 mg/dl (Negative); Leukocyte Esterase-Dipstick 25 /ul (Negative); Nitrite-Dipstick Negative (Negative); Occult Blood-Urine Negative /ul (Negative); Protein-Dipstick Negative (Negative); Urine Bilirubin Dipstick Negative (Negative); Urine Clarity Clear (Clear); Urine Urobilinogen Normal (Normal)
[2021-03-26 16:50] LABS: Squamous Epithelial Cells - UA 0-5 SEEN /hpf (5-10)
[2021-03-26] MEDS: 0.9% Normal Saline 1,000 ML 150 ML IV (16:58)
--- NOTE | 2021-03-26 17:01 | EDS_ITS ---
HPI History of Present Illness Chief Complaint: Dizziness Informant: patient Onset/Context/Timing Onset: Today Context: Gradual Onset Timing: Waxes and wanes Current Severity: Mild Maximum Severity: Moderate Narrative Narrative: Patient presents secondary to dizziness with some nausea and vomiting this morning. She feels that she is likely dehydrated. She states around 10 AM this morning she started feeling lightheaded. She does report 3 near syncopal episodes. She denies palpitations or chest pain. Patient does report that her 7 months ago unexpectedly and she has been under increased stress since that time. [facility] Medical History (Updated 03/26/21 @ 23:[address] Nadia Archibald MD) Abnormal Pap smear of cervix Breast mass, left Family history of breast cancer Lower back pain Mass of left breast Neck pain Home Medications escitalopram oxalate 5 mg PO DAILY 03/26/21 [History Last Taken Unknown] Allergy/AdvReac Type Severity Reaction Status Date / Time No Known Allergies Allergy Verified 03/26/21 15:18 Family History Mother Breast cancer Grandmother Breast cancer no significant family history Surgical History Status post colposcopy no surgical history Social History Smoking Status: Never smoker alcohol intake: never substance use type: does not use caffeine: No what type of physical activity do you participate in: none seatbelt use: always do you feel safe at home: Yes additional social history: -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- [employer] at [employer] 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 ROS ED Constitutional Constitutional ED: Denies chills or fever(s) Eyes Eyes: Denies change in vision ENT ENT ED: Denies sore throat Cardiovascular Cardiovascular: Denies chest pain Respiratory/Chest Respiratory/Chest: Denies cough or dyspnea Gastrointestinal Gastrointestinal: Denies abdominal pain, diarrhea, nausea or vomiting Genitourinary Genitourinary ED: Denies dysuria Musculoskeletal Musculoskeletal: Denies back pain Integumentary Denies rash Neurologic Neurologic: Denies headache(s) or weakness Psychiatric Psychiatric: Denies anxiety or depression Endocrine Endocrinology: Denies polydipsia or polyuria Allergic/Immunologic Allergic/Immunologic ED: Denies urticaria EXAM Physical Exam Const Vital Signs: 03/26/21 15:15 03/26/21 17:42 Temperature 98.5 F 98.1 F Temperature Source Temporal Pulse Rate 62 57 L Respiratory Rate 18 12 Blood Pressure 169/88 H 123/79 H Blood Pressure Mean 115 Pulse Ox 98 100 Oxygen Delivery Method Room Air Positive well nourished and well developed General Appearance ED: well developed HEENT Reports normocephalic and head/scalp atraumatic Eyes PERRL and EOMs intact bilaterally Neck supple Chest Wall inspection of chest normal and palpation of chest normal Resp normal respiratory effort and clear to auscultation bilaterally Cardio regular rate and regular rhythm GI normal to inspection, nondistended, normoactive bowel sounds Palpation: soft Extremity normal to inspection Neuro oriented x3 and no sensory deficits noted Sensorium / Orientation: alert Motor Exam: strength 5/5 throughout Psych mental status grossly normal Skin no rashes or lesions noted MDM MDM MDM Narrative Medical decision making narrative: Patient is given IV fluids. Labs and urinalysis are obtained. Patient is placed on color television console monitor. Lab Data Attestation: I reviewed the patient's lab results. Labs: Laboratory Results - last 24 hr 03/26/21 03/26/21 03/26/21 15:45 15:45 16:30 WBC 11.7 H RBC 5.61 H Hgb 15.7 H Hct 47.3 H MCV 84.3 MCH 28.0 MCHC 33.2 RDW Std Deviation 39.9 RDW Coeff of Jumana 13.0 Plt Count 274 MPV 10.0 Immature Gran % (Auto) 0.300 Neut % (Auto) 88.8 H Lymph % (Auto) 5.9 L [place] % (Auto) 4.5 Eos % (Auto) 0.2 Baso % (Auto) 0.3 Absolute Neuts (auto) 10.4 H Absolute Lymphs (auto) 0.69 L Nucleated RBC % 0 Sodium 136 Potassium 4.0 Chloride 104 Carbon Dioxide 26.0 Anion Gap 6 BUN 8 Creatinine 0.90 Estim Creat Clear Calc 85.14 Est GFR (MDRD) Af Amer 92 Est GFR (MDRD) Non-Af 76 BUN/Creatinine Ratio 8.9 L Glucose 127 H Calcium 9.5 Urine Color Yellow Urine Clarity Clear Urine pH 7.0 Ur Specific Biggs 1.010 Urine Protein Negative Urine Glucose (UA) Normal Urine Ketones 5 H Urine Occult Blood Negative Urine Nitrite Negative Urine Bilirubin Negative Urine Urobilinogen Normal Ur Leukocyte Esterase 25 H Urine RBC 0 SEEN Urine WBC 0 SEEN Ur Squamous Epith Cells 0-5 SEEN Urine Bacteria 0 SEEN Urine Mucus 0 SEEN Treatment and Re-Evaluation Comments:: Patient is had no significant arrhythmias or abnormalities noted on cardiac monitoring. Lab work does reveal hemoglobin to be concentrated at 15.7. Chemistry studies unremarkable. 5 ketones noted on urinalysis with no sign of infection. Patient has been given a liter of IV fluids. She was ambulating to the restroom and states she felt better walking to the restroom but still felt slightly weak on the return trip. She will be given another 500 cc fluid bolus and discharged home. Return instructions are provided. Disposition: Discharge Impression: 1. Dizziness, improved 2. Mild dehydration Discharge Plan Triage Chief Complaint: Dizziness Other Complaint: Nausea/Vomiting ED Provider: Nadia Archibald Dx/Rx/DC Orders Clinical Impression: Dizziness, Dehydration, mild Instructions: ED Dehydration (Adult) Prescriptions: No Action escitalopram oxalate 5 mg tablet 5 mg PO DAILY RF: 0 Primary Care Provider: Orlin Beltre Referrals: Orlin Beltre DO [Primary Care Provider] - 3-5 Days if not improving Disposition Disposition: Home, Self Care Discharge Date/Time: 03/26/21 17:46
[2021-03-26 17:42] VITALS: BP 123/79; PULSE 57; RESP 12; TEMP 36.7; O2SAT 100
== END 2021-03-26 17:46 | disposition home or self-care (01) ==
PROVIDERS: Emergency Provider Emergency Medicine; PCP Student in an Organized Health Care Education/Training Program
DX: E86.0 Dehydration (principal); R42 Dizziness and giddiness; R11.2 Nausea with vomiting, unspecified; Z79.899 Other long term (current) drug therapy
CPT/HCPCS: 80048; 81001; 85025; 96360; 96361; 99284; J7030

== ENCOUNTER → 2021-06-20 14:34 | Outpatient (CLI) | payer BC, SELFPAY ==
[2021-06-20 15:52] LABS: NATERA MAILED SPECIMEN
[2021-06-20 15:58] LABS: HIV - WCH Non-Reactive (Nonreactive)
[2021-06-22 14:09] LABS: HCV Quant. RNA PCR HCV Not Detected IU/mL (.)
[2021-06-22 15:34] LABS: HSV 1 IgG < 0.91 index (0.00-0.90); HSV 2 IgG < 0.91 index (0.00-0.90)
[2021-06-23 03:07] LABS: Chlamydia By Nucleic Acid AMP Negative (Negative)
[2021-06-23 12:50] LABS: Gonococcus By Nucleic Acid AMP Negative (Negative)
[2021-06-25 13:16] LABS: HPV APTIMA, High Risk Negative (Negative)
== END ==
PROVIDERS: PCP Student in an Organized Health Care Education/Training Program; Referring Provider Obstetrics & Gynecology; Visit Provider Obstetrics & Gynecology
DX: Z12.4 Encounter for screening for malignant neoplasm of cervix (principal); Z11.3 Encounter for screening for infections with a predominantly sexual mode of transmission
CPT/HCPCS: 36415; 86695; 86696; 86703; 87491; 87522; 87591; 87624; 88175; G0145

== ENCOUNTER → 2021-07-18 16:30 | Outpatient (CLI) | payer BC, SELFPAY ==
[2021-07-23 22:06] LABS: Chlamydia By Nucleic Acid AMP Negative (Negative)
[2021-07-24 12:06] LABS: Gonococcus By Nucleic Acid AMP Negative (Negative)
== END ==
PROVIDERS: PCP Student in an Organized Health Care Education/Training Program; Visit Provider Obstetrics & Gynecology
DX: Z11.3 Encounter for screening for infections with a predominantly sexual mode of transmission (principal)
CPT/HCPCS: 87491; 87591

== ENCOUNTER 2022-01-16 11:09 | Emergency (ER) | payer BC, SELFPAY ==
[2022-01-16 11:10] VITALS: BP 113/77; PULSE 91; RESP 16; TEMP 36.9; O2SAT 98; BMI 22.1
--- NOTE | 2022-01-16 11:43 | EX.ED.DYSGE1 ---
HPI History of Present Illness Chief Complaint: Headache Informant: patient Narrative Narrative: She presents with migraine. She states she only gets 1 of these every 3 or 4 months. She is not sure what causes them. This 1 started with visual scotoma. She states she sees bright flashing lights mostly in her right eye. Then over the next day she will develop the headache. This pattern happened about 3 days ago. The headache is in the front. No numbness tingling weakness. She has had nausea but no vomiting. Decreased appetite. She has been trying to take Motrin but is just not helping much. She has not had fevers or chills. She did have a recent UTI and was on antibiotics but has been on these antibiotics without problems before. Her UTI symptoms are gone. [facility] Medical History Abnormal Pap smear of cervix Breast mass, left Family history of breast cancer Lower back pain Mass of left breast Neck pain Home Medications escitalopram oxalate 10 mg tablet 10 mg PO DAILY 06/20/21 [History Last Taken Unknown] norethindrone 1 mg-ethinyl estradiol 20 mcg (24)-iron 75 mg (4) tablet 1 tab PO QDAY #84 tab 07/05/21 [Rx Last Taken Unknown] Allergy/AdvReac Type Severity Reaction Status Date / Time No Known Allergies Allergy Verified 01/16/22 11:11 Family History Mother Breast cancer Grandmother Breast cancer Surgical History Status post colposcopy Social History Smoking Status: Never smoker alcohol intake: never substance use type: does not use caffeine: No what type of physical activity do you participate in: none seatbelt use: always do you feel safe at home: Yes 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 Constitutional Constitutional ED: Denies fever(s) or sweats Eyes Eyes: Reports other Details: Visual scotoma prior to the headache ; Denies blurry vision or diplopia ENT ENT ED: Denies rhinorrhea Cardiovascular Cardiovascular: Denies chest pain Respiratory/Chest Respiratory/Chest: Denies cough or dyspnea Gastrointestinal Gastrointestinal: Reports nausea; Denies abdominal pain or vomiting Genitourinary Genitourinary ED: Reports other Details: See history of present illness peer ; Denies dysuria, hematuria or urinary frequency Musculoskeletal Musculoskeletal: Denies back pain Integumentary Denies rash Neurologic Neurologic: Reports headache(s); Denies paresthesias or weakness Endocrine Endocrinology: Denies polydipsia or polyuria Allergic/Immunologic Allergic/Immunologic ED: Denies urticaria EXAM Physical Exam Const Vital Signs: 01/16/22 11:10 Temperature 98.4 F Temperature Source Temporal Pulse Rate 91 Respiratory Rate 16 Blood Pressure 113/77 Blood Pressure Mean 89 Pulse Ox 98 Oxygen Delivery Method Room Air Positive well nourished and well developed General Appearance ED: well developed and NAD; Negative for cyanotic or diaphoretic HEENT Reports dry mucous membranes HEENT Narrative: No sinus tenderness. Mouth ED: Yes dry mucous membranes Mouth: dry mucous membranes Eyes Eyes Narrative: No significant photophobia. Pupils are about 4 mm equal and reactive General Eye ED: Negative for pale conjunctiva or scleral icterus Neck supple Neck Narrative: No meningismus. Chest Wall inspection of chest normal Resp normal respiratory effort and clear to auscultation bilaterally Cardio regular rate and regular rhythm GI normal to inspection, nondistended, normoactive bowel sounds and non-tender Palpation: soft Back/Spine no CVA tenderness Extremity General Extremety ED: Negative for edema or tenderness General Extremity: Negative for edema Neuro Sensorium / Orientation: alert Psych mental status grossly normal Skin no rashes or lesions noted MDM MDM MDM Narrative Medical decision making narrative: Since recheck. She has no nausea. She has no headache. She is feeling well and would like to go home. We discussed reasons to return. Discharge Plan Triage Chief Complaint: Headache ED Provider: Mauricio Mercado Dx/Rx/DC Orders Clinical Impression: Headache, migraine Instructions: ED, Migraine (Classical) Prescriptions: No Action escitalopram oxalate [Lexapro] 10 mg tablet 10 mg PO DAILY RF: 0 norethindrone-e.estradiol-iron [Junel Fe 24] 1 mg-20 mcg (24)/75 mg (4) tablet 1 tab PO QDAY Qty: 84 RF: 4 Primary Care Provider: Orlin Beltre Referrals: Orlin Beltre, [Primary Care Provider] - As Needed Disposition Disposition: Home, Self Care
[2022-01-16] MEDS: DiphenhydrAMINE 50 MG/ML Syringe IV (11:56)
[2022-01-16] MEDS: 0.9% Normal Saline 1,000 ML 999 ML IV (11:56)
[2022-01-16] MEDS: proCHLORPERazine 10 MG/2 ML Vial IV (11:57)
== END 2022-01-16 14:32 | disposition home or self-care (01) ==
PROVIDERS: Emergency Provider Emergency Medicine; PCP Student in an Organized Health Care Education/Training Program; Visit Provider Emergency Medicine
DX: G43.909 Migraine, unspecified, not intractable, without status migrainosus (principal); Z79.899 Other long term (current) drug therapy
CPT/HCPCS: 96361; 96374; 96375; 99283; J7030; A4216

== ENCOUNTER 2022-01-23 18:53 | Emergency (ER) | payer BC, SELFPAY ==
[2022-01-23 18:54] VITALS: BP 125/91; PULSE 90; RESP 22; TEMP 37.2; BMI 22.8
--- NOTE | 2022-01-23 19:19 | EX.ED.DYSGE1 ---
HPI History of Present Illness Chief Complaint: Nausea/Vomiting Informant: patient Onset/Context/Timing Onset: Days (10) Context: Gradual Onset Timing: Continuous Quality: Sore and swollen Location: Throat Current Severity: Severe Maximum Severity: Severe Worsened by: Swallowing Relieved by: Nothing Associated Symptoms Associated Symptoms: Nausea Narrative Narrative: Patient has had mononucleosis for the past 10 days and she feels poorly. She is having trouble eating and drinking because of all of the throat pain and swelling which is diffuse and nonlateralizing. She is nauseated as well which is not helping. Her doctor started her on prednisone 2 days ago, she has had 2 doses of 40 mg each, the last of which was taken earlier today. She is also on tramadol. She states none of this seems to be helping so far. She was exposed to strep, and states she went to an urgent care and had a rapid strep test that was negative and she states they were not running a culture. [facility] Medical History Abnormal Pap smear of cervix Breast mass, left Family history of breast cancer Lower back pain Mass of left breast Neck pain Home Medications escitalopram oxalate 10 mg tablet 10 mg PO DAILY 06/20/21 [History Last Taken Unknown] norethindrone 1 mg-ethinyl estradiol 20 mcg (24)-iron 75 mg (4) tablet 1 tab PO QDAY #84 tab 07/05/21 [Rx Last Taken Unknown] ondansetron 8 mg PO Q8H PRN PRN #20 tab 01/23/22 [Rx Last Taken Unknown] Allergy/AdvReac Type Severity Reaction Status Date / Time No Known Allergies Allergy Verified 01/23/22 18:54 Family History Mother Breast cancer Grandmother Breast cancer Surgical History Status post colposcopy Social History Smoking Status: Never smoker alcohol intake: never substance use type: does not use caffeine: No what type of physical activity do you participate in: none seatbelt use: always do you feel safe at home: Yes 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[email or web address] ED Constitutional Constitutional ED: Denies chills or fever(s) Eyes Eyes: Denies change in vision or diplopia ENT ENT ED: Reports as per HPI, odynophagia, sore throat and throat swelling; Denies rhinorrhea Cardiovascular Cardiovascular: Denies chest pain or palpitations Respiratory/Chest Respiratory/Chest: Denies cough or dyspnea Gastrointestinal Gastrointestinal: Reports nausea; Denies abdominal pain or diarrhea Genitourinary Genitourinary ED: Denies dysuria or hematuria Musculoskeletal Musculoskeletal: Denies back pain or neck pain Integumentary Denies abscess or rash Neurologic Neurologic: Denies headache(s), paresthesias or weakness Psychiatric Psychiatric: Denies anxiety or suicidal thoughts EXAM Physical Exam Const Vital Signs: 01/23/22 18:54 Temperature 99 F Temperature Source Temporal Pulse Rate 90 Respiratory Rate 22 H Blood Pressure 125/91 H Blood Pressure Mean 102 Positive well nourished and well developed General Appearance ED: well developed and NAD HEENT Reports moist mucous membranes HEENT Narrative: Patient has a high potato voice without any stridor or respiratory distress. No trismus. Diffuse symmetric tonsillar erythema and edema with exudates. Uvula midline. normocephalic and atraumatic Eyes PERRL and EOMs intact bilaterally Neck full ROM and supple Neck Narrative: Mild posterior lymphadenopathy no anterior lymphadenopathy Resp normal respiratory effort and clear to auscultation bilaterally Cardio regular rate, regular rhythm and no murmurs Rate: Negative for tachycardic GI non-tender and non-distended Auscultation: normoactive bowel sounds Palpation: soft Back/Spine no CVA tenderness General Back: other FROM Extremity normal to inspection General Extremety ED: Negative for edema, pulses abnormal or tenderness General Extremity: Negative for edema or pulses abnormal Neuro oriented x3, CN's II-XII intact bilaterally and no sensory deficits noted Sensorium / Orientation: awake and alert Motor Exam: strength 5/5 throughout Skin no rashes or lesions noted and no wounds MDM MDM MDM Narrative Medical decision making narrative: Basic labs were obtained, she does not have any electrolyte imbalances or significant prerenal azotemia. She has a lymphocytosis consistent with mononucleosis. She was requesting that we perform a repeat strep test since she had an exposure, it is negative and a culture is sent and pending, I cautioned her about treating it if she actually does have strep which I doubt, due to poss rash development if treated with amoxicillin/PCN. Lab Data Attestation: I reviewed the patient's lab results. Labs: Laboratory Results - last 24 hr 01/23/22 01/23/22 19:31 19:31 WBC 12.1 H RBC 5.21 Hgb 14.2 Hct 43.1 MCV 82.7 MCH 27.3 MCHC 32.9 RDW Std Deviation 41.5 RDW Coeff of Jumnaa 13.7 Plt Count 220 MPV 9.4 Immature Gran % (Auto) 0.700 Neut % (Auto) 29.0 L Lymph % (Auto) 58.7 H [place] % (Auto) 10.0 Eos % (Auto) 0.1 Baso % (Auto) 1.5 H Absolute Neuts (auto) 3.5 Absolute Lymphs (auto) 7.10 H Nucleated RBC % 0 Differential Comment Atypical Lymphocytes 1+ Reactive Lymphocytes 2+ Platelet Estimate ADEQUATE RBC Morphology NORM C+C Sodium 136 Potassium 3.8 Chloride 99 Carbon Dioxide 30.0 Anion Gap 7 BUN 12 Creatinine 0.74 Estim Creat Clear Calc 110.89 Est GFR (MDRD) Af Amer 114 Est GFR (MDRD) Non-Af 94 BUN/Creatinine Ratio 16.1 Glucose 97 Calcium 8.9 Discharge Plan Triage Chief Complaint: Nausea/Vomiting ED Provider: Nikhil Barbour Dx/Rx/DC Orders Clinical Impression: Mononucleosis, Dysphagia, Nausea Instructions: ED Mononucleosis Prescriptions: New ondansetron [ondansetron] 4 MG tablet 8 mg PO Q8H PRN PRN (Reason: Nausea) Qty: 20 RF: 0 No Action escitalopram oxalate [Lexapro] 10 mg tablet 10 mg PO DAILY RF: 0 norethindrone-e.estradiol-iron [ 24] 1 mg-20 mcg (24)/75 mg (4) tablet 1 tab PO QDAY Qty: 84 RF: 4 Primary Care Provider: Orlin Beltre Referrals: Orlin Beltre DO [Primary Care Provider] - As Needed Activity Restrictions/Additional Instructions: Discontinue your prednisone since you received a dose of Decadron in the emergency department Disposition Disposition: Home, Self Care
[2022-01-23] MEDS: 0.9% Normal Saline 1,000 ML 999 ML IV (19:35)
[2022-01-23] MEDS: Ketorolac 30 MG/ML Syringe IV (19:35)
[2022-01-23] MEDS: dexAMETHasone 10 MG/ML Vial IV (19:36)
[2022-01-23] MEDS: Ondansetron 4 MG/2 ML Vial IV ×2 (19:36→21:50)
[2022-01-23 20:02] LABS: Absolute Neutrophil Count 3.5 X10^3/uL (2.0-7.7); Basophil# 0.18 X10^3/uL; Basophil% 1.5 % (0-1); Eosinophil# 0.01 X10^3/uL; Eosinophils% 0.1 % (0-5); Hematocrit 43.1 % (37-47); Hemoglobin 14.2 g/dL (12.0-15.0); Lymphocyte % 58.7 % (19-41); Mean Corp Hgb Conc 32.9 g/dL (32-36); Mean Corpuscular Hgb 27.3 pg (27.0-32.0); Mean Corpuscular Volume 82.7 fL (81-99); Mean Platelet Vol. 9.4 fl (6.2-12.0); Monocyte# 1.21 X10^3/uL; NRBC Flagged by Analyzer 0 % (0-5); Neutrophil # 3.52 X10^3/uL (2.7-7.7); POSITIVE DIFFERENTIAL YES; POSITIVE MORPHOLOGY YES; Platelet Count 220 K/mm3 (150-450); RBC Distribution Width CV 13.7 % (11.6-14.6); RBC Distribution Width SD 41.5 fl (35.1-43.9); Red Blood Count 5.21 M/mm3 (4.2-5.4); White Blood Count 12.1 K/mm3 (4.4-11.0)
[2022-01-23 20:05] LABS: Differential Indicated SCAN CRITERIA MET
[2022-01-23 20:15] LABS: Anion Gap 7 (5-15); BUN 12 mg/dL (7-18); BUN/Creat Ratio 16.1 RATIO (10-20); Calcium,Total 8.9 mg/dL (8.5-10.1); Chloride 99 mmol/L (98-107); Creatinine, Serum 0.74 mg/dL (0.55-1.02); EST Glomerular Filtration Rate 94 mL/min (>60); Est Glom Filt Rate - Afr Amer 114 mL/min (>60); Estimated Creatinine Clearance 110.89 ml/min; Glucose 97 mg/dL (74-106); Potassium 3.8 mmol/L (3.5-5.1); Sodium Level 136 mmol/L (136-145)
[2022-01-23 20:50] LABS: Atypical Lymphocyte 1+ %; Platelet Estimate ADEQUATE (ADEQ); Reactive Lymphocyte 2+
[2022-01-23 20:51] LABS: Red Cell Morphology NORM C+C NORMAL (NORM C&C)
[2022-01-23 22:00] VITALS: BP 176/64; PULSE 85; RESP 16
== END 2022-01-23 22:00 | disposition home or self-care (01) ==
PROVIDERS: Emergency Provider Emergency Medicine; PCP Student in an Organized Health Care Education/Training Program; Visit Provider Emergency Medicine
DX: B27.90 Infectious mononucleosis, unspecified without complication (principal); R13.10 Dysphagia, unspecified; R11.2 Nausea with vomiting, unspecified; Z79.899 Other long term (current) drug therapy
CPT/HCPCS: 80048; 85025; 87880; 96361; 96374; 96375; 96376; 99283; J7030; A4216; J2405

== ENCOUNTER → 2022-06-27 | Outpatient (CLI) | payer BC, SELFPAY ==
[2022-06-27 11:50] LABS: Vitamin D,25 Hydroxy 42.9 ng/mL
[2022-06-27 11:56] LABS: Cholesterol 152 mg/dL (200); Glucose 92 mg/dL (74-106); High Density Lipoprotein 77 mg/dL; T4 Free Direct 0.86 ng/dL (0.76-1.46); Thyroid Stim Hormone (TSH) 1.88 uIU/mL (0.358-3.74); Triglycerides 38 mg/dL; Very Low Density Lipoprotein 8 mg/dL (5-40)
== END | disposition home or self-care (01) ==
LOC: PAVLAB 10:50
PROVIDERS: PCP Student in an Organized Health Care Education/Training Program; Referring Provider Obstetrics & Gynecology; Visit Provider Obstetrics & Gynecology
DX: R53.83 Other fatigue (principal); R63.5 Abnormal weight gain
CPT/HCPCS: 36415; 80061; 82306; 82947; 84439; 84443

== ENCOUNTER → 2022-10-15 | Outpatient (CLI) | payer OTHER, SELFPAY ==
--- NOTE | 2022-10-15 12:35 | BI_ITS ---
MAMMOGRAPHY - BILATERAL SCREENING REASON FOR EXAM: Female, 37 years old. Routine annual screening examination. PERTINENT HISTORY: Mother with breast cancer. Grandmothers with breast cancer. Aunt with breast cancer. TECHNIQUE: Digital bilateral breast jayy (3D mammographic acquisition) in the CC and MLO projections. 2-D mediolateral oblique (MLO) and craniocaudad (CC) views of both breasts were obtained. CAD: Full Field Digital Mammography with Computer Added Detection was performed. COMPARISON: None. Baseline examination. FINDINGS: Breast Composition: The breasts are extremely dense, which lowers the sensitivity of mammography. There are no dominant masses or suspicious calcifications. Small benign appearing bilateral axillary lymph nodes. No other significant abnormalities are identified. BI/SCRN MAMM (CAD)W/JAYY BILAT IMPRESSION: Negative screening mammogram. Yearly followup mammogram recommended. (A) ASSESSMENT CATEGORY: BIRADS Category 2: Benign. A letter regarding these results will be sent to the patient by the facility within 30 days. Approximately 10% of breast cancers are not detected by mammography. A normal mammogram should not delay biopsy of a clinically suspicious abnormality. [id number] Electronically Signed: Joe Batista MD at 14:20 EST ,
== END | disposition home or self-care (01) ==
LOC: OPBI 12:34
PROVIDERS: PCP Student in an Organized Health Care Education/Training Program; Visit Provider Obstetrics & Gynecology
DX: Z12.31 Encounter for screening mammogram for malignant neoplasm of breast (principal); Z80.3 Family history of malignant neoplasm of breast
CPT/HCPCS: 77063; 77067

== ENCOUNTER → 2023-03-04 | Outpatient (CLI) | payer OTHER, SELFPAY ==
[2023-03-06 06:09] LABS: HSV 1 IgG < 0.91 index (0.00-0.90); HSV 2 IgG < 0.91 index (0.00-0.90)
== END | disposition home or self-care (01) ==
PROVIDERS: PCP Student in an Organized Health Care Education/Training Program; Referring Provider Nurse Practitioner Women's Health; Visit Provider Nurse Practitioner Women's Health
DX: Z20.2 Contact with and (suspected) exposure to infections with a predominantly sexual mode of transmission (principal)
CPT/HCPCS: 36415; 86695; 86696; 87070; 87205; 87255

== ENCOUNTER → 2023-06-17 | Outpatient (CLI) | payer OTHER, SELFPAY ==
[2023-06-17 13:36] LABS: hCG Titer Quant., Serum < 1 mIU/mL (1-3)
== END | disposition home or self-care (01) ==
PROVIDERS: PCP Student in an Organized Health Care Education/Training Program; Referring Provider Obstetrics & Gynecology; Visit Provider Obstetrics & Gynecology
DX: N91.2 Amenorrhea, unspecified (principal)
CPT/HCPCS: 36415; 84443; 84702